=== PATIENT | male | born 1950 | race Caucasian/White ===

== ENCOUNTER 2017-06-26 08:16 | Day surgery (SDC) | payer MEDICARE ==
[~2017-06-26] VITALS: Ht 177.8 cm; Wt 64.0 kg
[~2017-06-26 08:16] MED LIST: ADV50250 IH; CARV-49 PO; CLOP75TA35 PO; FENO135C3 PO; FURO-150 PO; GABA100C PO; GLIP-126 PO; LEVO500T89 PO; LISI10TA4 PO; MULT-570 PO; PANT40TA4 PO; PRED20TA PO; ROSU40TA PO; TIOT18CA7 IH
[2017-06-26] MEDS ORDERED: sodium bicarbonate (8.4%) inj. 150 MEQ in dextrose 5%-water 850 ML IV ONE (09:30)
[2017-06-26 09:45] VITALS: BP 104/53
[2017-06-26] MEDS ORDERED: iohexol 350 MG/ML 50ML vial IV ONE (11:38)
[2017-06-26] MEDS ORDERED: iohexol 350MG/ML 100ml bottle IV ONE (11:38)
[2017-06-26] MEDS ORDERED: sodium bicarbonate (8.4%) inj. 150 MEQ in dextrose 5%-water 1,000 ML IV SCH (13:40)
[2017-06-26 16:07] VITALS: BP 107/64
== END 2017-06-26 16:25 | disposition home or self-care (01) ==
LOC: SSTAY O 08:16 → 64 CT 08:16 → EDSTATUS 09:00 → SSTAY O 16:25
PROVIDERS: ATTEND Surgery
DX: I71.4 Abdominal aortic aneurysm, without rupture (principal); I74.5 Embolism and thrombosis of iliac artery; I70.203 Unspecified atherosclerosis of native arteries of extremities, bilateral legs; I10 Essential (primary) hypertension; F17.210 Nicotine dependence, cigarettes, uncomplicated; E11.9 Type 2 diabetes mellitus without complications; Z87.11 Personal history of peptic ulcer disease; Z72.89 Other problems related to lifestyle; Z85.528 Personal history of other malignant neoplasm of kidney; Z85.841 Personal history of malignant neoplasm of brain; Z85.118 Personal history of other malignant neoplasm of bronchus and lung; Z79.2 Long term (current) use of antibiotics; Z88.6 Allergy status to analgesic agent; Z98.890 Other specified postprocedural states; Z79.899 Other long term (current) drug therapy
CPT/HCPCS: 75635; 82948; J7030; Q9967

== ENCOUNTER 2017-07-06 09:50 | Inpatient (IN) | payer MEDICARE ==
[~2017-07-06] VITALS: Ht 177.8 cm; Wt 66.0 kg
[~2017-07-06 09:50] MED LIST changes: -CARV-49 PO; -CLOP75TA35 PO; -FURO-150 PO; -GABA100C PO; -LEVO500T89 PO; -PANT40TA4 PO; -PRED20TA PO
[2017-07-06] MEDS ORDERED: HYDR-3972 PO (10:46)
[2017-07-06] MEDS ORDERED: TEMA15CA PO (10:46)
[2017-07-06] MEDS ORDERED: METO-384 PO (10:46)
[2017-07-06] MEDS ORDERED: ASCO10007 PO (10:49)
[2017-07-06] MEDS ORDERED: CHOL10002 PO (10:49)
[2017-07-06] MEDS ORDERED: VITA150T PO (10:49)
[2017-07-06] MEDS ORDERED: OMEG1CAP20 PO (10:49)
[2017-07-06 11:15] LABS: BASOPHILS % (AUTO) 0.4 % (0-1); EOSINOPHILS # (AUTO) 1.3 X10'3 (0-0.9); EOSINOPHILS % (AUTO) 14.5 % (0-6); LYMPHOCYTES # (AUTO) 1.8 X10'3 (1.1-4.8); LYMPHOCYTES % (AUTO) 20.6 % (21-51); MEAN CORPUSCULAR HEMOGLOBIN 30.3 PG (27.0-31.0); MEAN CORPUSCULAR HGB CONC 33.9 % (33.0-36.5); MEAN CORPUSCULAR VOLUME 89.2 FL (78-98); MEAN PLATELET VOLUME 6.9 FL (7.4-10.4); MONOCYTES # (AUTO) 0.9 X10'3 (0-0.9); MONOCYTES % (AUTO) 10.4 % (2-12); NEUTROPHILS # (AUTO) 4.7 X10'3 (1.8-7.7); NEUTROPHILS % (AUTO) 54.1 % (42-75); PRE OP HEMATOCRIT 35.9 % (42.0-52.0); PRE OP HEMOGLOBIN 12.2 g/dL (14.0-17.9); PRE OP PLATELET COUNT 321 X10'3 (140-440); RED BLOOD COUNT 4.02 X10'6 (4.70-6.10); RED CELL DISTRIBUTION WIDTH 18.1 % (11.5-14.5)
[2017-07-06 11:23] LABS: PRE OP PROTIME 10.6 SECONDS (9.0-12.0)
[2017-07-06 11:26] LABS: ALBUMIN 3.6 G/DL (3.4-5.0); ALBUMIN/GLOBULIN RATIO 1.1 (1.1-1.5); ALKALINE PHOSPHATASE 29 IU/L (46-116); BLOOD UREA NITROGEN 33 MG/DL (7-18); BUN/CREATININE RATIO 16.4 (5.4-32.0); CALCIUM 9.2 MG/DL (8.5-10.1); CHLORIDE 104 MMOL/L (99-107); CREATININE 2.01 MG/DL (0.60-1.10); PRE OP ALT 19 U/L (30-65); PRE OP ANION GAP 8 (8-16); PRE OP AST 17 U/L (10-37); PRE OP BILIRUB, TOTAL 0.3 MG/DL (0.0-1.0); PRE OP GLUCOSE 165 MG/DL (70-104); PRE OP POTASSIUM 5.1 MMOL/L (3.4-5.1); PRE OP SODIUM 139 MMOL/L (135-145); TOTAL CARBON DIOXIDE 26.7 MMOL/L (24-32); TOTAL PROTEIN 6.8 G/DL (6.4-8.2); eGFR 33 ML/MIN
[2017-07-06 11:31] LABS: HEMOGLOBIN A1C 6.3 % (4.5-6.2)
[2017-07-07] MEDS ORDERED: IBUP-24 PO (11:51)
[2017-07-07] MEDS ORDERED: normal saline 1000ml 1,000 ML IV SCH (12:15)
[2017-07-08] VITALS (28 sets, daily range): BP systolic 96–182; BP diastolic 43–78
[2017-07-08] MEDS ORDERED: famotidine 20mg tablet PO ONE (05:30)
[2017-07-08] MEDS ORDERED: DOCUMENT DATE & TIME OF BETA-BLOCKER PO ONE (05:30)
[2017-07-08] MEDS ORDERED: ceFAZolin inj. 2,000 MG in normal saline 100ml IV soln 100 ML IV ONE (05:30)
[2017-07-08] MEDS ORDERED: ceFAZolin inj. 3,000 MG in dextrose 5%-water 100 ML IV ONE (05:30)
[2017-07-08] MEDS ORDERED: LIDOcaine 1% (10mg/ml) 2ml vial ONE (05:58)
[2017-07-08] MEDS: ringers solution, lacted 1,000 ML IV SCH ×2 (06:23→14:42)
[2017-07-08] MEDS ORDERED: vancomycin/NS 1 GM ADD-VANTAGE 250 ML X 1 DOSE IV ONE (06:30)
[2017-07-08] MEDS ORDERED: ceFAZolin 1000mg inj ONE (06:35)
[2017-07-08] MEDS ORDERED: heparin 10,000 units/1 ML INJ ONE ×2 (06:35→06:59)
[2017-07-08] MEDS ORDERED: sevoflurane 250ml liquid IH ONE (07:08)
[2017-07-08] MEDS ORDERED: midazolam 2 mg/2 ml injection ONE (07:12)
[2017-07-08] MEDS ORDERED: fentaNYL /PF 50mcg/ml 5ml ampule ONE (07:13)
[2017-07-08] MEDS ORDERED: heparin 1,000unit/ml 10ml vial 10 ML ONE ×2 (08:02→09:30)
[2017-07-08] MEDS ORDERED: metoprolol tartrate 1mg/ml inj IV ONE ×2 (08:02→09:30)
[2017-07-08] MEDS ORDERED: LIDOcaine 2% (20mg/ml) 5ml vial ONE (08:02)
[2017-07-08] MEDS ORDERED: esmolol inj. 0 ML IV ONE (08:02)
[2017-07-08] MEDS ORDERED: ePHEDrine 50MG/ML INJ. ONE (08:03)
[2017-07-08] MEDS ORDERED: rocuronium 10mg/ml inj IV ONE (08:03)
[2017-07-08] MEDS ORDERED: propofol inj 20 ML IV ONE (08:03)
[2017-07-08] MEDS ORDERED: ondansetron/PF 4mg/2ml inj ONE (08:06)
[2017-07-08] MEDS ORDERED: ringers solution, lacted 1,000 ML IV ONE (08:11)
[2017-07-08] MEDS ORDERED: morphine 4 MG/ML inj SYRINge IV PRN ×2 (08:15)
[2017-07-08] MEDS ORDERED: meperidine/PF 50mg/ml syringe IV PRN ×2 (08:15)
[2017-07-08] MEDS ORDERED: hydrALAZINE 20mg/ml inj. IV PRN (08:15)
[2017-07-08] MEDS ORDERED: labetalol 20mg/4ml (5mg/ml) syringe IV PRN (08:15)
[2017-07-08] MEDS ORDERED: ondansetron/PF 4mg/2ml inj IV PRN ×2 (08:15→09:05)
[2017-07-08] MEDS ORDERED: meperidine/PF 50mg/ml syringe IV ONE (08:15)
[2017-07-08] MEDS ORDERED: neostigmine methylsulfate 1 MG/ML 10ml vial ONE (08:56)
[2017-07-08] MEDS ORDERED: glycopyrrolate 0.2mg/ml inj ONE (08:56)
[2017-07-08] MEDS ORDERED: dextrose ORAL solution 15 GM/59 ML bottle PO PRN ×2 (09:05)
[2017-07-08] MEDS ORDERED: naloxone 0.4 mg/ml inj IV PRN (09:05)
[2017-07-08] MEDS ORDERED: MESSAGE TO PHARMACY PO ONE (09:05)
[2017-07-08] MEDS ORDERED: HYDROcodone/acetaminophen 10/325mg tab PO PRN (09:05)
[2017-07-08] MEDS ORDERED: glucagon, human recombinant 1mg kit SUBCUT PRN (09:05)
[2017-07-08] MEDS ORDERED: dextrose 50%-water 50ml dispensing syringe IV PRN ×2 (09:05)
[2017-07-08] MEDS ORDERED: CADD PCA waste documentation MC PRN (09:05)
[2017-07-08] MEDS ORDERED: insulin Lispro (HumaLOG) vial - multi-dose SQ SCH (09:05)
[2017-07-08] MEDS ORDERED: esmolol inj. 10 ML IV ONE (09:30)
[2017-07-08] MEDS: HYDROmorphone/NS 1 mg/ml CADD 50 ML IV SCH ×7 (10:06→23:00)
[2017-07-08] MEDS ORDERED: ibuprofen 200mg tablet PO PRN (17:30)
[2017-07-08] MEDS ORDERED: temazepam 15mg capsule PO PRN (17:30)
[2017-07-08] MEDS: neomy sulf/bacitrac zn/polymixin b oint 14.2 gm tube TP SCH (20:46)
[2017-07-08] MEDS: ipratropium 0.5 MG/2.5ML nebule IH SCH (20:50)
[2017-07-08] MEDS: insulin glargine (Lantus) pen - multi-dose SQ SCH (21:00)
[2017-07-09] VITALS (11 sets, daily range): BP systolic 89–117; BP diastolic 47–74
[2017-07-09] MEDS: HYDROmorphone/NS 1 mg/ml CADD 50 ML IV SCH ×12 (01:00→23:00)
[2017-07-09] MEDS: ipratropium 0.5 MG/2.5ML nebule IH SCH ×4 (02:26→20:32)
[2017-07-09 05:21] LABS: BASOPHILS % (AUTO) 0 % (0-1); EOSINOPHILS # (AUTO) 0.5 X10'3 (0-0.9); EOSINOPHILS % (AUTO) 4.6 % (0-6); HEMOGLOBIN 10.8 g/dl (14.0-17.9); LYMPHOCYTES % (AUTO) 9.5 % (21-51); MEAN CORPUSCULAR HEMOGLOBIN 30.7 PG (27.0-31.0); MEAN CORPUSCULAR HGB CONC 33.7 % (33.0-36.5); MEAN CORPUSCULAR VOLUME 90.9 FL (78-98); MEAN PLATELET VOLUME 6.8 FL (7.4-10.4); MONOCYTES # (AUTO) 1.3 X10'3 (0-0.9); MONOCYTES % (AUTO) 12.1 % (2-12); NEUTROPHILS % (AUTO) 73.8 % (42-75); PLATELET COUNT 231 X10'3 (140-440); RED BLOOD COUNT 3.51 X10'6 (4.70-6.10); RED CELL DISTRIBUTION WIDTH 17.5 % (11.5-14.5); WHITE BLOOD COUNT 10.9 X10'3 (4.5-11.0)
[2017-07-09 05:30] LABS: ANION GAP 10 (8-16); BLOOD UREA NITROGEN 29 MG/DL (7-18); CALCIUM 8.2 MG/DL (8.5-10.1); CHLORIDE 107 MMOL/L (99-107); CREATININE 1.61 MG/DL (0.60-1.10); GLUCOSE 111 MG/DL (70-104); POTASSIUM 5.2 MMOL/L (3.5-5.1); SODIUM 141 MMOL/L (135-145); TOTAL CARBON DIOXIDE 24.5 MMOL/L (24-32); eGFR 43 ML/MIN
[2017-07-09] MEDS: vancomycin/NS 1 GM ADD-VANTAGE 250 ML IV SCH ×2 (05:38→07:48)
[2017-07-09] MEDS: vitamin D (cholecalciferol) 1,000 unit tablet PO SCH (07:54)
[2017-07-09] MEDS: OMEGA-3/DHA/EPA/FISH OIL 1 EACH CAPSULE.DR PO SCH (07:58)
[2017-07-09] MEDS: fenofibrate 145mg tablet PO SCH (07:58)
[2017-07-09] MEDS: multivitamins, therapeutics tablet PO SCH (07:58)
[2017-07-09] MEDS: neomy sulf/bacitrac zn/polymixin b oint 14.2 gm tube TP SCH (07:59)
[2017-07-09] MEDS: metoprolol tartrate 50mg tablet PO SCH (08:00)
[2017-07-09] MEDS ORDERED: glipizide 5mg tablet PO SCH (08:00)
[2017-07-09] MEDS: ascorbic acid 500mg tablet PO SCH ×2 (08:00→10:00)
[2017-07-09] MEDS: enoxaparin 40mg/0.4ml syringe SQ SCH (08:15)
[2017-07-09] MEDS: lactobacillus rhamnosus 10,000 MMU CELLS/CAPSULE PO SCH (20:32)
[2017-07-09] MEDS: insulin glargine (Lantus) pen - multi-dose SQ SCH (21:00)
[2017-07-10] VITALS: BP 128/60
[2017-07-10] MEDS: HYDROmorphone/NS 1 mg/ml CADD 50 ML IV SCH ×8 (01:00→15:00)
[2017-07-10 01:03] LABS: BASOPHILS # (AUTO) 0.1 X10'3 (0-0.2); BASOPHILS % (AUTO) 1.3 % (0-1); EOSINOPHILS # (AUTO) 0.2 X10'3 (0-0.9); EOSINOPHILS % (AUTO) 2.1 % (0-6); HEMATOCRIT 33.7 % (42.0-52.0); HEMOGLOBIN 11.2 g/dl (14.0-17.9); LYMPHOCYTES # (AUTO) 0.9 X10'3 (1.1-4.8); LYMPHOCYTES % (AUTO) 8.1 % (21-51); MEAN CORPUSCULAR HGB CONC 33.4 % (33.0-36.5); MEAN CORPUSCULAR VOLUME 89.9 FL (78-98); MEAN PLATELET VOLUME 7.6 FL (7.4-10.4); MONOCYTES # (AUTO) 1.2 X10'3 (0-0.9); MONOCYTES % (AUTO) 10.8 % (2-12); NEUTROPHILS % (AUTO) 77.7 % (42-75); PLATELET COUNT 258 X10'3 (140-440); RED BLOOD COUNT 3.75 X10'6 (4.70-6.10); RED CELL DISTRIBUTION WIDTH 16.6 % (11.5-14.5); WHITE BLOOD COUNT 11.4 X10'3 (4.5-11.0)
[2017-07-10] MEDS: ipratropium 0.5 MG/2.5ML nebule IH SCH ×3 (03:30→14:20)
[2017-07-10 06:06] LABS: BASOPHILS % (AUTO) 0.2 % (0-1); EOSINOPHILS # (AUTO) 0.4 X10'3 (0-0.9); EOSINOPHILS % (AUTO) 4.1 % (0-6); HEMATOCRIT 30.1 % (42.0-52.0); HEMOGLOBIN 10.3 g/dl (14.0-17.9); LYMPHOCYTES # (AUTO) 1.2 X10'3 (1.1-4.8); LYMPHOCYTES % (AUTO) 11.9 % (21-51); MEAN CORPUSCULAR HGB CONC 34.3 % (33.0-36.5); MEAN CORPUSCULAR VOLUME 90.4 FL (78-98); MEAN PLATELET VOLUME 6.8 FL (7.4-10.4); MONOCYTES # (AUTO) 1.3 X10'3 (0-0.9); MONOCYTES % (AUTO) 13.2 % (2-12); NEUTROPHILS # (AUTO) 7.1 X10'3 (1.8-7.7); NEUTROPHILS % (AUTO) 70.6 % (42-75); PLATELET COUNT 224 X10'3 (140-440); RED BLOOD COUNT 3.33 X10'6 (4.70-6.10)
[2017-07-10 06:39] LABS: ALANINE AMINOTRANSFERASE 20 U/L (12-78); ALBUMIN 3.2 G/DL (3.4-5.0); ALKALINE PHOSPHATASE 30 IU/L (46-116); ANION GAP 13 (8-16); ASPARTATE AMINO TRANSFERASE 28 U/L (10-37); BILIRUBIN,TOTAL 0.6 MG/DL (0.1-1.0); BLOOD UREA NITROGEN 29 MG/DL (7-18); CALCIUM 8.3 MG/DL (8.5-10.1); CHLORIDE 102 MMOL/L (99-107); CREATININE 1.53 MG/DL (0.60-1.10); GLUCOSE 106 MG/DL (70-104); POTASSIUM 4.6 MMOL/L (3.5-5.1); SODIUM 136 MMOL/L (135-145); TOTAL CARBON DIOXIDE 21.4 MMOL/L (24-32); TOTAL PROTEIN 6.3 G/DL (6.4-8.2); eGFR 45 ML/MIN
[2017-07-10 07:00] VITALS: BP 116/57
[2017-07-10] MEDS: OMEGA-3/DHA/EPA/FISH OIL 1 EACH CAPSULE.DR PO SCH (07:55)
[2017-07-10] MEDS: lactobacillus rhamnosus 10,000 MMU CELLS/CAPSULE PO SCH (07:55)
[2017-07-10] MEDS: metoprolol tartrate 50mg tablet PO SCH (07:56)
[2017-07-10] MEDS: multivitamins, therapeutics tablet PO SCH (07:56)
[2017-07-10] MEDS: vitamin D (cholecalciferol) 1,000 unit tablet PO SCH (07:56)
[2017-07-10] MEDS: enoxaparin 40mg/0.4ml syringe SQ SCH (07:57)
[2017-07-10] MEDS: fenofibrate 145mg tablet PO SCH (07:57)
[2017-07-10] MEDS: neomy sulf/bacitrac zn/polymixin b oint 14.2 gm tube TP SCH (08:00)
[2017-07-10] MEDS: ascorbic acid 500mg tablet PO SCH (10:10)
[2017-07-10 11:00] VITALS: BP 116/61
[2017-07-10] MEDS ORDERED: HYDROcodone/acetaminophen 10/325mg tab PO PRN (15:40)
[2017-07-10] MEDS ORDERED: OXYC-150 PO (16:43)
== END 2017-07-10 17:45 | disposition home or self-care (01) | DRG 253 ==
LOC: EDSTATUS 09:50 → PAS IN 07-08 05:32 → EDSTATUS 07-08 07:30 → CICU 2S 07-08 10:25 → MED 3N 07-09 13:21
PROVIDERS: ADMIT Surgery; ATTEND Surgery
PROC: 02HV33Z Insertion of Infusion Device into Superior Vena Cava, Percutaneous Approach (ICD-10-PCS; 2017-07-08)
PROC: 041L0JH Bypass Left Femoral Artery to Right Femoral Artery with Synthetic Substitute, Open Approach (ICD-10-PCS; principal; 2017-07-08 07:08)
DX: I70.712 Atherosclerosis of other type of bypass graft(s) of the extremities with intermittent claudication, left leg (principal); C41.9 Malignant neoplasm of bone and articular cartilage, unspecified; C64.9 Malignant neoplasm of unspecified kidney, except renal pelvis; J44.9 Chronic obstructive pulmonary disease, unspecified; E11.9 Type 2 diabetes mellitus without complications; E78.5 Hyperlipidemia, unspecified; I10 Essential (primary) hypertension; R33.9 Retention of urine, unspecified; F17.210 Nicotine dependence, cigarettes, uncomplicated; Z96.641 Presence of right artificial hip joint; Z95.5 Presence of coronary angioplasty implant and graft; Z79.899 Other long term (current) drug therapy; Z87.11 Personal history of peptic ulcer disease; Z82.49 Family history of ischemic heart disease and other diseases of the circulatory system
CPT/HCPCS: 36415; 71045; 80048; 80053; 82948; 83036; 85025; 85610; 85730; 86644; 86870; 86885; 86900; 86901; 86902; 86922; 86945; 87070; 94640; 94668; 94760; 97116; 97161; 97530; A4315; A4353; A4649; A6196; A6212; A6213; A6258; A6449; A7000; C1751; C1757; C1758; C1768; J0690; J1170; J1644; J1650; J1815; J2001; J2175; J2250; J2270; J2405; J2704; J2710; J3010; J3370; J3490; J7030; J7060; J7120

== ENCOUNTER 2017-07-10 22:30 | Emergency (ER) | payer MEDICARE ==
[~2017-07-10] VITALS: Ht 170.2 cm; Wt 66.0 kg
[~2017-07-10 22:30] MED LIST changes: +ASCO10007 PO; +CHOL10002 PO; +HYDR-3972 PO; +IBUP-24 PO; +METO-384 PO; +OMEG1CAP20 PO; +OXYC-150 PO; +TEMA15CA PO; +VITA150T PO
[2017-07-10 22:53] VITALS: BP 120/59
== END 2017-07-11 00:14 | disposition home or self-care (01) ==
LOC: ER 22:31
DX: T81.89XA Other complications of procedures, not elsewhere classified, initial encounter (principal); I25.10 Atherosclerotic heart disease of native coronary artery without angina pectoris; I10 Essential (primary) hypertension; E11.9 Type 2 diabetes mellitus without complications; J44.9 Chronic obstructive pulmonary disease, unspecified; Z79.899 Other long term (current) drug therapy
CPT/HCPCS: 99283

== ENCOUNTER 2018-04-18 19:23 | Emergency (ER) | payer MEDICARE ==
[~2018-04-18] VITALS: Ht 180.3 cm; Wt 67.5 kg
[2018-04-18 20:15] LABS: BASOPHILS % (AUTO) 0.6 % (0-1); EOSINOPHILS # (AUTO) 0.7 X10'3 (0-0.9); EOSINOPHILS % (AUTO) 8.6 % (0-6); HEMATOCRIT 41.6 % (42.0-52.0); HEMOGLOBIN 13.7 g/dl (14.0-17.9); LYMPHOCYTES # (AUTO) 2.2 X10'3 (1.1-4.8); LYMPHOCYTES % (AUTO) 27.4 % (21-51); MEAN CORPUSCULAR HEMOGLOBIN 31.7 PG (27.0-31.0); MEAN CORPUSCULAR HGB CONC 32.9 % (33.0-36.5); MEAN CORPUSCULAR VOLUME 96.3 FL (78-98); MEAN PLATELET VOLUME 7.5 FL (7.4-10.4); NEUTROPHILS % (AUTO) 51.4 % (42-75); PLATELET COUNT 308 X10'3 (140-440); RED BLOOD COUNT 4.32 X10'6 (4.70-6.10); RED CELL DISTRIBUTION WIDTH 13.4 % (11.5-14.5); WHITE BLOOD COUNT 7.9 X10'3 (4.5-11.0)
[2018-04-18 20:28] LABS: INR 1.1 INR; PARTIAL THROMBOPLASTIN TIME 26 SECONDS (22-32); PROTHROMBIN TIME 10.7 SECONDS (9.0-12.0)
[2018-04-18 20:30] LABS: ALANINE AMINOTRANSFERASE 26 U/L (12-78); ALBUMIN 3.9 G/DL (3.4-5.0); ALBUMIN/GLOBULIN RATIO 1.1 (1.1-1.5); ALKALINE PHOSPHATASE 45 IU/L (46-116); ANION GAP 9 (8-16); ASPARTATE AMINO TRANSFERASE 22 U/L (10-37); BILIRUBIN,TOTAL 0.3 MG/DL (0.1-1.0); BLOOD UREA NITROGEN 24 MG/DL (7-18); BUN/CREATININE RATIO 16.7 (5.4-32.0); CALCIUM 9.7 MG/DL (8.5-10.1); CHLORIDE 102 MMOL/L (99-107); CREATININE 1.44 MG/DL (0.60-1.10); GLUCOSE 149 MG/DL (70-104); POTASSIUM 4.6 MMOL/L (3.5-5.1); SODIUM 139 MMOL/L (135-145); TOTAL PROTEIN 7.4 G/DL (6.4-8.2); eGFR 49 ML/MIN
[2018-04-18] MEDS ORDERED: ipratropium/albuterol 3ml nebule NEB ONE (21:35)
[2018-04-18] MEDS ORDERED: methylPREDNISolone sod succ 125mg/2ml vial IV ONE (21:35)
[2018-04-18 22:06] VITALS: BP 129/71
[2018-04-18] MEDS ORDERED: PRED20TA PO (22:54)
[2018-04-18] MEDS ORDERED: AZIT250T2 PO (22:54)
--- NOTE | 2018-04-18 23:14 | NUR ---
PT AMBULATED ONE CIRCUT OF ER WITH AN 02 OF 91% ON ROOM AIR. NO WEAKNESS OR DIZZINESS REPORTED
== END 2018-04-18 23:57 | disposition home or self-care (01) ==
LOC: ER 19:23
DX: J44.1 Chronic obstructive pulmonary disease with (acute) exacerbation (principal); I25.10 Atherosclerotic heart disease of native coronary artery without angina pectoris; I10 Essential (primary) hypertension; E11.9 Type 2 diabetes mellitus without complications
CPT/HCPCS: 36415; 71045; 80053; 83880; 84484; 85025; 85610; 85730; 87502; 87503; 93005; 94640; 94760; 96374; 99284; J2930

== ENCOUNTER 2018-07-26 20:48 | Inpatient (IN) | payer MEDICARE ==
[~2018-07-26] VITALS: Ht 177.8 cm; Wt 68.2 kg
[2018-07-26] MEDS ORDERED: normal saline 1000ML IV soln IVB ONE (20:55)
[2018-07-26] MEDS ORDERED: albuterol 2.5 mg/0.5ml nebule NEB ONE (20:55)
[2018-07-26] MEDS ORDERED: methylPREDNISolone sod succ 125mg/2ml vial IV ONE (20:55)
[2018-07-26] MEDS ORDERED: albuterol 2.5 MG/3 ML nebule NEB ONE ×2 (21:05→23:05)
[2018-07-26] MEDS ORDERED: ALBU18HF2 IH (21:15)
[2018-07-26] MEDS ORDERED: FENO145T25 PO (21:15)
[2018-07-26] MEDS ORDERED: ASPI-1265 PO (21:15)
[2018-07-26] MEDS ORDERED: BUPR-83 PO (21:15)
[2018-07-26] MEDS ORDERED: LISI-604 PO (21:15)
[2018-07-26 21:25] LABS: BASOPHILS # (AUTO) 0.1 X10'3 (0-0.2); BASOPHILS % (AUTO) 0.7 % (0-1); EOSINOPHILS # (AUTO) 0.9 X10'3 (0-0.9); EOSINOPHILS % (AUTO) 7.3 % (0-6); HEMATOCRIT 37.5 % (42.0-52.0); HEMOGLOBIN 12.4 g/dl (14.0-17.9); LYMPHOCYTES # (AUTO) 1.9 X10'3 (1.1-4.8); LYMPHOCYTES % (AUTO) 16.6 % (21-51); MEAN PLATELET VOLUME 7.3 FL (7.4-10.4); MONOCYTES # (AUTO) 1.6 X10'3 (0-0.9); MONOCYTES % (AUTO) 13.8 % (2-12); NEUTROPHILS # (AUTO) 7.1 X10'3 (1.8-7.7); NEUTROPHILS % (AUTO) 61.6 % (42-75); PLATELET COUNT 301 X10'3 (140-440); RED BLOOD COUNT 3.99 X10'6 (4.70-6.10); RED CELL DISTRIBUTION WIDTH 15.4 % (11.5-14.5); WHITE BLOOD COUNT 11.6 X10'3 (4.5-11.0)
[2018-07-26 21:30] LABS: ALANINE AMINOTRANSFERASE 23 U/L (12-78); ALBUMIN 3.3 G/DL (3.4-5.0); ALBUMIN/GLOBULIN RATIO 0.9 (1.1-1.5); ALKALINE PHOSPHATASE 42 IU/L (46-116); ANION GAP 3 (8-16); ASPARTATE AMINO TRANSFERASE 19 U/L (10-37); BILIRUBIN,TOTAL 0.2 MG/DL (0.1-1.0); BLOOD UREA NITROGEN 33 MG/DL (7-18); BUN/CREATININE RATIO 26.2 (5.4-32.0); CALCIUM 9.7 MG/DL (8.5-10.1); CHLORIDE 101 MMOL/L (99-107); CREATININE 1.26 MG/DL (0.60-1.10); GLUCOSE 135 MG/DL (70-104); POTASSIUM 4.8 MMOL/L (3.5-5.1); SODIUM 138 MMOL/L (135-145); TOTAL CARBON DIOXIDE 34.5 MMOL/L (24-32); TOTAL PROTEIN 7.1 G/DL (6.4-8.2); eGFR 57 ML/MIN
[2018-07-26 21:35] LABS: INR 1.1 INR; PARTIAL THROMBOPLASTIN TIME 25 SECONDS (22-32)
[2018-07-26] MEDS ORDERED: ondansetron/PF 4mg/2ml inj IV ONE (21:40)
[2018-07-26 22:36] LABS: MAGNESIUM 1.8 MG/DL (1.5-2.4); PHOSPHORUS 3.4 MG/DL (2.3-4.5)
[2018-07-26 23:41] LABS: ABG BASE EXCESS 3.6 mmol/L (-2.0-3.0); ABG HCO3 34.2 mmol/L (22.0-26.0); ABG PCO2 (T) 86.8 mmHg (35.0-48.0); ABG PH (T) 7.213 (7.350-7.450); ABG PO2 (T) 68.3 mmHg (83-108); ALLEN'S TEST Positive; FCOHb 6.3 % (0.5-1.5); FLOW 2 L/min; FMetHb 0.2 % (0.3-1.12); RESPIRATORY RATE (OBSERVED) 20 b/min; TOTAL HEMOGLOBIN 13.1 G/dl (14.0-18.0)
--- NOTE | 2018-07-27 00:08 | NUR ---
2200 PATIENT VOMITED BROWN 200 ML, AWARE
--- NOTE | 2018-07-27 00:08 | NUR ---
BIPAP PLACED, VERBALIZED UNDERSTANDING
--- NOTE | 2018-07-27 00:30 | NUR ---
ROCKY [phone] CELL
[2018-07-27 02:41] LABS: ABG BASE EXCESS -0.6 mmol/L (-2.0-3.0); ABG HCO3 28.5 mmol/L (22.0-26.0); ABG OXYGEN SATURATION 95.6 % (95-98); ABG PH (T) 7.238 (7.350-7.450); ABG PO2 (T) 82.2 mmHg (83-108); ALLEN'S TEST Positive; FCOHb 4.9 % (0.5-1.5); FMetHb 0.2 % (0.3-1.12); FO2Hb 90.7 % (94-100); PATIENT TEMPERATURE 36.5; RESPIRATORY RATE 14 b/min; RESPIRATORY RATE (OBSERVED) 25 b/min; TOTAL HEMOGLOBIN 13.1 G/dl (14.0-18.0)
--- NOTE | 2018-07-27 04:02 | NUR ---
HOSPITALIST AT BEDSIDE.
--- NOTE | 2018-07-27 04:30 | NUR ---
NURSING LABOR RELATIONS MANAGER AT BEDSIDE.
[2018-07-27] MEDS ORDERED: ondansetron/PF 4mg/2ml inj IV PRN (04:50)
[2018-07-27] MEDS ORDERED: mag hydrox/Alum hydrox/simeth 30ml oral suspension PO PRN (04:50)
[2018-07-27] MEDS ORDERED: magnesium hydroxide 30ml (MOM) UD suspension PO PRN (04:50)
[2018-07-27] MEDS ORDERED: acetaminophen 325mg tablet PO PRN (04:50)
--- NOTE | 2018-07-27 04:53 | NUR ---
IN PATIENT BED ASSIGNMENT DELAYED TILL CHANGE OF SHIFT. Pt. OFFERED HOSPITAL BED BUT DECLINED. rEPORTED THAT HE IS FINE OF NOW.
[2018-07-27] MEDS ORDERED: MESSAGE TO PHARMACY PO ONE (04:55)
[2018-07-27] MEDS ORDERED: glucagon, human recombinant 1mg kit SUBCUT PRN (04:55)
[2018-07-27] MEDS ORDERED: dextrose ORAL solution 15 GM/59 ML bottle PO PRN ×2 (04:55)
[2018-07-27] MEDS ORDERED: insulin Lispro (HumaLOG) vial - multi-dose SQ SCH (04:55)
[2018-07-27] MEDS ORDERED: dextrose 50%-water 50ml dispensing syringe IV PRN ×2 (04:55)
[2018-07-27 05:11] LABS: HEMOGLOBIN A1C 7.2 % (4.5-6.2)
--- NOTE | 2018-07-27 05:25 | NUR ---
Patient on bipap and sleeping comfortably. Currently waiting for inpatient room assignment.
--- NOTE | 2018-07-27 06:30 | NUR ---
Attempted to call report, No nurse assigned.
[2018-07-27 07:45] VITALS: BP 135/67
[2018-07-27] MEDS ORDERED: non-formulary drug (Tiotropium Bromide* (Spiriva*) 18 MCG) IH SCH (08:00)
[2018-07-27] MEDS: methylPREDNISolone sod succ/PF 40mg inj. IV SCH ×2 (09:15→15:19)
[2018-07-27] MEDS: buPROPion SR 150mg tablet PO SCH (09:15)
[2018-07-27] MEDS: aspirin 81mg tab.chew PO SCH (09:15)
[2018-07-27] MEDS: metoprolol succinate 25mg (24-HOUR) SR. Tablet PO SCH (09:15)
[2018-07-27] MEDS: atorvastatin 10mg tablet PO SCH (09:15)
[2018-07-27] MEDS: lisinopril 5mg tablet PO SCH (09:15)
[2018-07-27] MEDS: enoxaparin 40mg/0.4ml syringe SUBCUT SCH (09:16)
[2018-07-27] MEDS: budesonide 0.5mg/2ml UD nebule IH SCH ×2 (09:43→19:58)
[2018-07-27] MEDS: ipratropium/albuterol 3ml nebule NEB SCH ×4 (09:43→23:23)
[2018-07-27] MEDS ORDERED: pneumococcal 23-VAL P-sac vacc 25 mcg/0.5ml vial IMVAC ONE (10:00)
[2018-07-27 11:00] VITALS: BP 134/44
--- NOTE | 2018-07-27 11:16 | NUR ---
DM Consult: A1C 7.2. Pt hx T2DM, COPD, renal cell carcinoma w/ mets to R hip requiring surgery and brain requiring radiation per MD note. Pt has received 2 chemo regimens for palliative care keeping him alive per MD note. Given hx pt is not apporpriate for DM ed at this time. Will monitor for changes in code status. MIRNA d/w RN for multivitamin/mineral for pt needs per MD approval. Addendum: 07/27/18 at [address] Amended: Links added.
[2018-07-27] MEDS: lactose-reduced food (Ensure High Protein) 237ml bottle PO SCH ×2 (13:00→18:00)
[2018-07-27 15:00] VITALS: BP 117/54
--- NOTE | 2018-07-27 17:56 | NUR ---
refusing tele " You have enough information I dont want this" he said. Tele box returned to tech
--- NOTE | 2018-07-27 18:15 | NUR ---
Paged about refusal of insulin and refusal of tele
[2018-07-27 19:00] VITALS: BP 145/55
[2018-07-27] MEDS: insulin glargine (Lantus) pen - multi-dose SQ SCH (21:00)
--- NOTE | 2018-07-27 21:46 | NUR ---
PATIENT STILL REFUSING INULIN.
[2018-07-27 23:00] VITALS: BP 125/58
[2018-07-28] VITALS (7 sets, daily range): BP systolic 101–156; BP diastolic 55–73
[2018-07-28] MEDS: methylPREDNISolone sod succ/PF 40mg inj. IV SCH ×3 (00:06→17:01)
[2018-07-28] MEDS: temazepam 15mg capsule PO PRN ×2 (01:11→22:24)
[2018-07-28] MEDS: ipratropium/albuterol 3ml nebule NEB SCH ×6 (02:59→23:24)
[2018-07-28 05:26] LABS: BASOPHILS % (AUTO) 0.1 % (0-1); EOSINOPHILS % (AUTO) 0 % (0-6); HEMATOCRIT 33.1 % (42.0-52.0); LYMPHOCYTES # (AUTO) 0.7 X10'3 (1.1-4.8); LYMPHOCYTES % (AUTO) 9.3 % (21-51); MEAN CORPUSCULAR HEMOGLOBIN 31.6 PG (27.0-31.0); MEAN CORPUSCULAR HGB CONC 33.2 g/dL (33.0-36.5); MEAN CORPUSCULAR VOLUME 95.2 FL (78-98); MEAN PLATELET VOLUME 7.6 FL (7.4-10.4); MONOCYTES # (AUTO) 0.3 X10'3 (0-0.9); MONOCYTES % (AUTO) 3.2 % (2-12); NEUTROPHILS # (AUTO) 6.9 X10'3 (1.8-7.7); NEUTROPHILS % (AUTO) 87.4 % (42-75); PLATELET COUNT 245 X10'3 (140-440); RED BLOOD COUNT 3.48 X10'6 (4.70-6.10); WHITE BLOOD COUNT 7.9 X10'3 (4.5-11.0)
[2018-07-28 05:50] LABS: ALANINE AMINOTRANSFERASE 19 U/L (12-78); ALBUMIN/GLOBULIN RATIO 0.9 (1.1-1.5); ALKALINE PHOSPHATASE 35 IU/L (46-116); ANION GAP 4 (8-16); ASPARTATE AMINO TRANSFERASE 15 U/L (10-37); BILIRUBIN,TOTAL 0.3 MG/DL (0.1-1.0); BLOOD UREA NITROGEN 39 MG/DL (7-18); BUN/CREATININE RATIO 31.7 (5.4-32.0); CALCIUM 9.7 MG/DL (8.5-10.1); CHLORIDE 104 MMOL/L (99-107); CREATININE 1.23 MG/DL (0.60-1.10); GLUCOSE 179 MG/DL (70-104); POTASSIUM 5.3 MMOL/L (3.5-5.1); SODIUM 138 MMOL/L (135-145); TOTAL CARBON DIOXIDE 29.8 MMOL/L (24-32); TOTAL PROTEIN 6.3 G/DL (6.4-8.2); eGFR 58 ML/MIN
[2018-07-28] MEDS: budesonide 0.5mg/2ml UD nebule IH SCH ×2 (07:19→19:20)
[2018-07-28] MEDS: enoxaparin 40mg/0.4ml syringe SUBCUT SCH (08:00)
[2018-07-28] MEDS: lactose-reduced food (Ensure High Protein) 237ml bottle PO SCH ×3 (08:00→18:00)
[2018-07-28] MEDS: aspirin 81mg tab.chew PO SCH (09:04)
[2018-07-28] MEDS: lisinopril 5mg tablet PO SCH (09:04)
[2018-07-28] MEDS: metoprolol succinate 25mg (24-HOUR) SR. Tablet PO SCH (09:04)
[2018-07-28] MEDS: atorvastatin 10mg tablet PO SCH (09:05)
[2018-07-28] MEDS: buPROPion SR 150mg tablet PO SCH (09:05)
--- NOTE | 2018-07-28 13:42 | NUR ---
Informed MD Murphy patient refusing lovenox and insulin and wishes to take home med glipizide. Dr states no glipizide at this time
--- NOTE | 2018-07-28 16:41 | NUR ---
PAGER ID: [phone] MESSAGE: Room 3027A. Latonya. provided MD imaging report. placed in chart . pedro [phone]
--- NOTE | 2018-07-28 18:34 | NUR ---
Problems reprioritized. Patient report given, questions answered & plan of care reviewed with Alicia Moya RN, pt greeted at bedside.
[2018-07-28] MEDS: insulin glargine (Lantus) pen - multi-dose SQ SCH (21:00)
--- NOTE | 2018-07-29 01:32 | NUR ---
The pt was found in the [facility] and he was very confused stating he was going to the refrigerator because his cigarettes were in it. When staff tried to help him back to his room and redirect him as to where he was at he became combative and a lui herrera had to be called to safely get him back to his room where he went back to his bed. Dr Davis called about the Lui Herrera and was told about the patients confusion and being combative, trying to get into other patients rooms, and the Tele room wanting his cigarettes. For the patients safety Dr Davis ordered a sitter for the pt if needed.
--- NOTE | 2018-07-29 02:00 | NUR ---
Pt refused 0200 VS. He has been sleeping with no s/s of distress.
[2018-07-29] MEDS: ipratropium/albuterol 3ml nebule NEB SCH ×6 (03:00→22:56)
[2018-07-29 06:00] VITALS: BP 145/54
[2018-07-29] MEDS: budesonide 0.5mg/2ml UD nebule IH SCH ×2 (07:28→18:56)
[2018-07-29] MEDS: buPROPion SR 150mg tablet PO SCH (07:45)
[2018-07-29] MEDS: atorvastatin 10mg tablet PO SCH (07:45)
[2018-07-29] MEDS: lisinopril 5mg tablet PO SCH (07:45)
[2018-07-29] MEDS: metoprolol succinate 25mg (24-HOUR) SR. Tablet PO SCH (07:45)
[2018-07-29] MEDS: aspirin 81mg tab.chew PO SCH (07:46)
[2018-07-29] MEDS: enoxaparin 40mg/0.4ml syringe SUBCUT SCH (07:46)
[2018-07-29] MEDS: predniSONE 20 mg tablet PO SCH (07:46)
[2018-07-29] MEDS: lactose-reduced food (Ensure High Protein) 237ml bottle PO SCH ×3 (08:00→18:00)
[2018-07-29 11:00] VITALS: BP 144/63
--- NOTE | 2018-07-29 14:08 | NUR ---
PAGED RT FOR ABG "ABG ORDERED FOR 3027A. NATANAEL BOWMAN. THANK YOU, GEOVANNI [facility] [phone]"
[2018-07-29 14:56] LABS: ABG BASE EXCESS 6.8 mmol/L (-2.0-3.0); ABG HCO3 33.3 mmol/L (22.0-26.0); ABG OXYGEN SATURATION 95.6 % (95-98); ABG PH (T) 7.392 (7.350-7.450); ABG PO2 (T) 78.2 mmHg (83-108); ALLEN'S TEST Positive; FCOHb 0.3 % (0.5-1.5); FLOW 2 L/min; FMetHb 0.1 % (0.3-1.12); FO2Hb 95.2 % (94-100); TOTAL HEMOGLOBIN 12.6 G/dl (14.0-18.0)
[2018-07-29 15:00] VITALS: BP 164/59
[2018-07-29 15:15] LABS: BASOPHILS % (AUTO) 0.2 % (0-1); EOSINOPHILS % (AUTO) 0 % (0-6); HEMATOCRIT 36.9 % (42.0-52.0); LYMPHOCYTES # (AUTO) 0.7 X10'3 (1.1-4.8); LYMPHOCYTES % (AUTO) 7.2 % (21-51); MEAN CORPUSCULAR HEMOGLOBIN 30.2 PG (27.0-31.0); MEAN CORPUSCULAR HGB CONC 32.5 g/dL (33.0-36.5); MEAN PLATELET VOLUME 7.4 FL (7.4-10.4); MONOCYTES # (AUTO) 0.3 X10'3 (0-0.9); MONOCYTES % (AUTO) 3.8 % (2-12); NEUTROPHILS # (AUTO) 8.2 X10'3 (1.8-7.7); NEUTROPHILS % (AUTO) 88.8 % (42-75); PLATELET COUNT 322 X10'3 (140-440); RED BLOOD COUNT 3.97 X10'6 (4.70-6.10); RED CELL DISTRIBUTION WIDTH 15.4 % (11.5-14.5); WHITE BLOOD COUNT 9.2 X10'3 (4.5-11.0)
[2018-07-29 15:31] LABS: ALANINE AMINOTRANSFERASE 29 U/L (12-78); ALBUMIN 3.3 G/DL (3.4-5.0); ALBUMIN/GLOBULIN RATIO 0.9 (1.1-1.5); ALKALINE PHOSPHATASE 40 IU/L (46-116); ANION GAP 7 (8-16); ASPARTATE AMINO TRANSFERASE 30 U/L (10-37); BILIRUBIN,TOTAL 0.3 MG/DL (0.1-1.0); BLOOD UREA NITROGEN 44 MG/DL (7-18); BUN/CREATININE RATIO 33.8 (5.4-32.0); CALCIUM 9.5 MG/DL (8.5-10.1); CHLORIDE 95 MMOL/L (99-107); GLUCOSE 180 MG/DL (70-104); SODIUM 134 MMOL/L (135-145); TOTAL CARBON DIOXIDE 32.1 MMOL/L (24-32); TOTAL PROTEIN 6.8 G/DL (6.4-8.2); eGFR 55 ML/MIN
[2018-07-29 15:34] LABS: POTASSIUM 5.2 MMOL/L (3.5-5.1)
[2018-07-29] MEDS: levoFLOXACIN-Levaquin 250mg/D5 50 ML IV SCH (16:01)
[2018-07-29] MEDS: vancomycin/NS 1 GM ADD-VANTAGE 250 ML IV SCH (17:05)
[2018-07-29 18:00] VITALS: BP 138/48
--- NOTE | 2018-07-29 18:17 | NUR ---
Problems reprioritized. Patient report given, questions answered & plan of care reviewed with STEPHANIE HASTINGS.
--- NOTE | 2018-07-29 18:17 | NUR ---
Patient in room PCU 3027. I have received report from Liz BROWN and had the opportunity to ask questions and assume patient care.
[2018-07-29] MEDS: insulin glargine (Lantus) pen - multi-dose SQ SCH (21:00)
[2018-07-29 22:00] VITALS: BP 147/70
[2018-07-29] MEDS: temazepam 15mg capsule PO PRN (22:01)
[2018-07-30] MEDS ORDERED: budesonide 0.5mg/2ml UD nebule IH SCH (00:10)
[2018-07-30 02:00] VITALS: BP 152/70
[2018-07-30] MEDS: ipratropium/albuterol 3ml nebule NEB SCH ×3 (03:26→11:31)
[2018-07-30] MEDS: vancomycin/NS 1 GM ADD-VANTAGE 250 ML IV SCH (04:15)
--- NOTE | 2018-07-30 04:54 | NUR ---
I have reviewed and agree with all interventions, assessments performed and documented by Judie Scruggs.
--- NOTE | 2018-07-30 04:55 | NUR ---
[place] Medication Administration: For this medication-pass time frame, all medication were reviewed, dispensed, administered and documented per hospital policy by STEPHANIE Scruggs.
[2018-07-30 05:13] LABS: BASOPHILS % (AUTO) 0.1 % (0-1); EOSINOPHILS # (AUTO) 0.1 X10'3 (0-0.9); EOSINOPHILS % (AUTO) 0.7 % (0-6); HEMATOCRIT 37.8 % (42.0-52.0); HEMOGLOBIN 12.5 g/dl (14.0-17.9); LYMPHOCYTES # (AUTO) 1.9 X10'3 (1.1-4.8); LYMPHOCYTES % (AUTO) 21.1 % (21-51); MEAN CORPUSCULAR HEMOGLOBIN 30.5 PG (27.0-31.0); MEAN CORPUSCULAR HGB CONC 32.9 g/dL (33.0-36.5); MEAN CORPUSCULAR VOLUME 92.5 FL (78-98); MEAN PLATELET VOLUME 7.3 FL (7.4-10.4); MONOCYTES % (AUTO) 11.3 % (2-12); NEUTROPHILS # (AUTO) 6.1 X10'3 (1.8-7.7); NEUTROPHILS % (AUTO) 66.8 % (42-75); PLATELET COUNT 312 X10'3 (140-440); RED BLOOD COUNT 4.09 X10'6 (4.70-6.10); RED CELL DISTRIBUTION WIDTH 15.4 % (11.5-14.5); WHITE BLOOD COUNT 9.1 X10'3 (4.5-11.0)
[2018-07-30 05:40] LABS: ALANINE AMINOTRANSFERASE 30 U/L (12-78); ALBUMIN 3.5 G/DL (3.4-5.0); ALKALINE PHOSPHATASE 36 IU/L (46-116); ANION GAP 5 (8-16); ASPARTATE AMINO TRANSFERASE 24 U/L (10-37); BILIRUBIN,TOTAL 0.4 MG/DL (0.1-1.0); BLOOD UREA NITROGEN 41 MG/DL (7-18); BUN/CREATININE RATIO 32.8 (5.4-32.0); CALCIUM 9.6 MG/DL (8.5-10.1); CHLORIDE 98 MMOL/L (99-107); CREATININE 1.25 MG/DL (0.60-1.10); GLUCOSE 131 MG/DL (70-104); POTASSIUM 4.6 MMOL/L (3.5-5.1); SODIUM 138 MMOL/L (135-145); TOTAL CARBON DIOXIDE 34.9 MMOL/L (24-32); TOTAL PROTEIN 6.9 G/DL (6.4-8.2); eGFR 57 ML/MIN
--- NOTE | 2018-07-30 06:10 | NUR ---
Problems reprioritized. Patient report give to STEPHANIE Covarrubias, questions answered & plan of care reviewed.
--- NOTE | 2018-07-30 06:41 | NUR ---
Patient in room PCU 3027. I have received report from Tess/Sheba BROWN and had the opportunity to ask questions and assume patient care.
[2018-07-30 07:34] VITALS: BP 155/63
[2018-07-30] MEDS: enoxaparin 40mg/0.4ml syringe SUBCUT SCH (08:00)
[2018-07-30] MEDS: lactose-reduced food (Ensure High Protein) 237ml bottle PO SCH (08:05)
[2018-07-30] MEDS: atorvastatin 10mg tablet PO SCH (08:06)
[2018-07-30] MEDS: aspirin 81mg tab.chew PO SCH (08:06)
[2018-07-30] MEDS: metoprolol succinate 25mg (24-HOUR) SR. Tablet PO SCH (08:06)
[2018-07-30] MEDS: buPROPion SR 150mg tablet PO SCH (08:06)
[2018-07-30] MEDS: predniSONE 20 mg tablet PO SCH (08:07)
[2018-07-30] MEDS: lisinopril 5mg tablet PO SCH (08:07)
[2018-07-30] MEDS: levoFLOXACIN-Levaquin 250mg/D5 50 ML IV SCH (08:09)
[2018-07-30] MEDS ORDERED: LEVO750T21 PO (08:30)
[2018-07-30 11:00] VITALS: BP 144/61
--- NOTE | 2018-07-30 11:00 | NUR ---
Patient down in nuclear medicine for a abran scan.
--- NOTE | 2018-07-30 11:45 | NUR ---
Patient discharged into the care of his family, patient was educated on discharge teaching and new medications. Medications were delivered by ramirez bedside. Patients IV was taken out at this time and IV site showed minimal bleeding and canula was whole and intact upon discharge. [facility] and transported home by .
[2018-07-31] MEDS ORDERED: VANCOMYCIN LEVEL IV ONE (03:30)
== END 2018-07-30 11:40 | disposition home or self-care (01) | DRG 177 ==
LOC: ER 20:49 → PCU 3S 07-27 07:19 → CMPBEDREQ 07-27 19:31
PROVIDERS: ADMIT Internal Medicine; ATTEND Internal Medicine
PROC: 5A09357 Assistance with Respiratory Ventilation, Less than 24 Consecutive Hours, Continuous Positive Airway Pressure (ICD-10-PCS; principal; 2018-07-27)
PROC: 5A09357 Assistance with Respiratory Ventilation, Less than 24 Consecutive Hours, Continuous Positive Airway Pressure (ICD-10-PCS; 2018-07-28)
DX: J15.6 Pneumonia due to other Gram-negative bacteria (principal); R65.11 Systemic inflammatory response syndrome (SIRS) of non-infectious origin with acute organ dysfunction; J96.21 Acute and chronic respiratory failure with hypoxia; J96.02 Acute respiratory failure with hypercapnia; J44.1 Chronic obstructive pulmonary disease with (acute) exacerbation; C78.00 Secondary malignant neoplasm of unspecified lung; J44.0 Chronic obstructive pulmonary disease with (acute) lower respiratory infection; D64.9 Anemia, unspecified; E87.5 Hyperkalemia; E11.22 Type 2 diabetes mellitus with diabetic chronic kidney disease; I12.9 Hypertensive chronic kidney disease with stage 1 through stage 4 chronic kidney disease, or unspecified chronic kidney disease; I25.10 Atherosclerotic heart disease of native coronary artery without angina pectoris; N18.3 Chronic kidney disease, stage 3 (moderate); F17.210 Nicotine dependence, cigarettes, uncomplicated; Z85.528 Personal history of other malignant neoplasm of kidney; Z92.21 Personal history of antineoplastic chemotherapy; Z71.6 Tobacco abuse counseling
CPT/HCPCS: 36415; 36600; 71045; 80053; 82803; 82948; 83036; 83735; 83880; 84100; 84484; 85018; 85025; 85610; 85730; 87070; 87077; 87186; 93005; 94640; 94660; 94760; 96361; 96374; 96375; 99285; G0378; J1650; J1815; J1956; J2405; J2920; J2930; J3370; J7512; J7611; J7626

== ENCOUNTER 2018-08-15 14:16 | Emergency (ER) | payer MEDICARE ==
[~2018-08-15] VITALS: Ht 177.8 cm; Wt 69.5 kg
[~2018-08-15 14:16] MED LIST changes: +ALBU18HF2 IH; +ASPI-1265 PO; +BUPR-83 PO; -FENO135C3 PO; +FENO145T25 PO; -HYDR-3972 PO; -IBUP-24 PO; +LEVO750T21 PO; +LISI-604 PO; -LISI10TA4 PO; -OXYC-150 PO
--- NOTE | 2018-08-15 14:58 | NUR ---
RELIEVING RN FOR BREAK, PT C/O SOB, RT HAS BEEN PAGED, PT IN SITTING IN H[place], RESP EVEN, SLIGHTLY LABORED, SKIN P/W/D
[2018-08-15] MEDS ORDERED: ipratropium/albuterol 3ml nebule NEB ONE (15:00)
[2018-08-15] MEDS ORDERED: ipratropium/albuterol 3ml nebule NEB SCH (15:00)
[2018-08-15 15:04] LABS: BASOPHILS % (AUTO) 0.3 % (0-1); EOSINOPHILS % (AUTO) 0.1 % (0-6); HEMATOCRIT 43.8 % (42.0-52.0); HEMOGLOBIN 14.3 g/dl (14.0-17.9); LYMPHOCYTES % (AUTO) 7.8 % (21-51); MEAN CORPUSCULAR HEMOGLOBIN 30.9 PG (27.0-31.0); MEAN CORPUSCULAR HGB CONC 32.7 g/dL (33.0-36.5); MEAN CORPUSCULAR VOLUME 94.3 FL (78-98); MEAN PLATELET VOLUME 7.4 FL (7.4-10.4); MONOCYTES # (AUTO) 0.9 X10'3 (0-0.9); MONOCYTES % (AUTO) 6.6 % (2-12); NEUTROPHILS % (AUTO) 85.2 % (42-75); PLATELET COUNT 229 X10'3 (140-440); RED BLOOD COUNT 4.65 X10'6 (4.70-6.10); RED CELL DISTRIBUTION WIDTH 15.4 % (11.5-14.5)
[2018-08-15 15:14] LABS: ALANINE AMINOTRANSFERASE 30 U/L (12-78); ALBUMIN 3.7 G/DL (3.4-5.0); ALBUMIN/GLOBULIN RATIO 1.1 (1.1-1.5); ALKALINE PHOSPHATASE 44 IU/L (46-116); ANION GAP 2 (8-16); ASPARTATE AMINO TRANSFERASE 15 U/L (10-37); BILIRUBIN,TOTAL 0.4 MG/DL (0.1-1.0); BLOOD UREA NITROGEN 41 MG/DL (7-18); BUN/CREATININE RATIO 29.9 (5.4-32.0); CALCIUM 9.9 MG/DL (8.5-10.1); CHLORIDE 101 MMOL/L (99-107); CREATININE 1.37 MG/DL (0.60-1.10); GLUCOSE 222 MG/DL (70-104); POTASSIUM 5.2 MMOL/L (3.5-5.1); SODIUM 137 MMOL/L (135-145); TOTAL CARBON DIOXIDE 34.5 MMOL/L (24-32); TOTAL PROTEIN 7.1 G/DL (6.4-8.2); eGFR 52 ML/MIN
[2018-08-15 15:19] LABS: PARTIAL THROMBOPLASTIN TIME 23 SECONDS (22-32)
[2018-08-15] MEDS ORDERED: ipratropium/albuterol 3ml nebule NEB STA (15:32)
[2018-08-15] MEDS ORDERED: furosemide 10 MG/1 ML 10ml inj IV ONE (15:45)
[2018-08-15] MEDS ORDERED: albuterol 2.5 MG/3 ML nebule CONTNEB PRN (15:50)
[2018-08-15 16:13] LABS: D-DIMER 2.02 MG/L FEU (0-0.50)
[2018-08-15] MEDS ORDERED: iohexol 350MG/ML 100ml bottle IV ONE (16:42)
[2018-08-15] MEDS ORDERED: ROSU40TA PO (16:59)
--- NOTE | 2018-08-15 17:58 | NUR ---
RT AT BEDSIDE ABG COMPLETED
[2018-08-15 18:01] LABS: ABG BASE EXCESS 7.1 mmol/L (-2.0-3.0); ABG HCO3 35.3 mmol/L (22.0-26.0); ABG PCO2 (T) 66.2 mmHg (35.0-48.0); ABG PH (T) 7.345 (7.350-7.450); ABG PO2 (T) 60.5 mmHg (83-108); ALLEN'S TEST Positive; FCOHb 4.8 % (0.5-1.5); FLOW 2 L/min; FMetHb 0.1 % (0.3-1.12); FO2Hb 86.5 % (94-100); TOTAL HEMOGLOBIN 14.7 G/dl (14.0-18.0)
[2018-08-15 18:57] VITALS: BP 114/91
[2018-08-15] MEDS ORDERED: FURO-150 PO (19:01)
== END 2018-08-15 19:14 | disposition home or self-care (01) ==
LOC: ER 14:17
DX: J44.1 Chronic obstructive pulmonary disease with (acute) exacerbation (principal); R91.1 Solitary pulmonary nodule; E87.2 Acidosis; C79.00 Secondary malignant neoplasm of unspecified kidney and renal pelvis; E87.5 Hyperkalemia; I25.10 Atherosclerotic heart disease of native coronary artery without angina pectoris; I10 Essential (primary) hypertension; J44.9 Chronic obstructive pulmonary disease, unspecified; E11.9 Type 2 diabetes mellitus without complications; Z79.82 Long term (current) use of aspirin
CPT/HCPCS: 94640; 94644; 96374; 99285; J1940; Q9967; 36415; 36600; 71046; 71275; 80053; 82803; 83605; 83880; 85018; 85025; 85379; 85610; 85730; 87040; 93005

== ENCOUNTER 2018-08-17 19:16 | Inpatient (IN) | payer MEDICARE ==
[~2018-08-17] VITALS: Ht 177.8 cm; Wt 69.0 kg
[~2018-08-17 19:16] MED LIST changes: +FURO-150 PO
[2018-08-17] MEDS ORDERED: normal saline 1000ML IV soln IVB ONE (19:45)
[2018-08-17] MEDS ORDERED: albuterol 2.5 MG/3 ML nebule CONTNEB PRN (19:45)
[2018-08-17] MEDS ORDERED: methylPREDNISolone sod succ 125mg/2ml vial IV ONE (19:45)
--- NOTE | 2018-08-17 20:00 | NUR ---
RT AT BEDSIDE
[2018-08-17 20:01] LABS: BASOPHILS # (AUTO) 0.1 X10'3 (0-0.2); BASOPHILS % (AUTO) 0.4 % (0-1); EOSINOPHILS # (AUTO) 0.1 X10'3 (0-0.9); EOSINOPHILS % (AUTO) 0.5 % (0-6); HEMATOCRIT 45.3 % (42.0-52.0); HEMOGLOBIN 14.6 g/dl (14.0-17.9); LYMPHOCYTES # (AUTO) 1.6 X10'3 (1.1-4.8); LYMPHOCYTES % (AUTO) 10.3 % (21-51); MEAN CORPUSCULAR HEMOGLOBIN 30.3 PG (27.0-31.0); MEAN CORPUSCULAR HGB CONC 32.1 g/dL (33.0-36.5); MEAN CORPUSCULAR VOLUME 94.3 FL (78-98); MEAN PLATELET VOLUME 7.7 FL (7.4-10.4); MONOCYTES # (AUTO) 1.1 X10'3 (0-0.9); MONOCYTES % (AUTO) 7.4 % (2-12); NEUTROPHILS # (AUTO) 12.6 X10'3 (1.8-7.7); NEUTROPHILS % (AUTO) 81.4 % (42-75); PLATELET COUNT 201 X10'3 (140-440); RED BLOOD COUNT 4.81 X10'6 (4.70-6.10); RED CELL DISTRIBUTION WIDTH 15.5 % (11.5-14.5); WHITE BLOOD COUNT 15.5 X10'3 (4.5-11.0)
[2018-08-17 20:11] LABS: ABG BASE EXCESS 10.2 mmol/L (-2.0-3.0); ABG HCO3 37.1 mmol/L (22.0-26.0); ABG OXYGEN SATURATION 94.4 % (95-98); ABG PCO2 (T) 57.3 mmHg (35.0-48.0); ABG PH (T) 7.427 (7.350-7.450); ABG PO2 (T) 66.3 mmHg (83-108); ALLEN'S TEST Positive; FCOHb 4.6 % (0.5-1.5); FLOW 2 L/min; FMetHb 0.1 % (0.3-1.12); PATIENT TEMPERATURE 36.7; RESPIRATORY RATE (OBSERVED) 20 b/min; TOTAL HEMOGLOBIN 15.1 G/dl (14.0-18.0)
[2018-08-17 20:15] LABS: ALANINE AMINOTRANSFERASE 27 U/L (12-78); ALBUMIN 3.6 G/DL (3.4-5.0); ALBUMIN/GLOBULIN RATIO 1.2 (1.1-1.5); ALKALINE PHOSPHATASE 41 IU/L (46-116); ANION GAP 2 (8-16); ASPARTATE AMINO TRANSFERASE 14 U/L (10-37); BILIRUBIN,TOTAL 0.5 MG/DL (0.1-1.0); BLOOD UREA NITROGEN 57 MG/DL (7-18); BUN/CREATININE RATIO 31.7 (5.4-32.0); CALCIUM 10.1 MG/DL (8.5-10.1); CHLORIDE 100 MMOL/L (99-107); GLUCOSE 218 MG/DL (70-104); POTASSIUM 5.1 MMOL/L (3.5-5.1); SODIUM 139 MMOL/L (135-145); TOTAL CARBON DIOXIDE 37.2 MMOL/L (24-32); TOTAL PROTEIN 6.7 G/DL (6.4-8.2); eGFR 38 ML/MIN
[2018-08-17] MEDS ORDERED: azithromycin/NS 500mg/250ml 250 ML IV ONE (20:15)
[2018-08-17] MEDS ORDERED: CefTRIAXone 2gm/D5W 50ml 50 ML IV ONE (20:15)
--- NOTE | 2018-08-17 22:33 | NUR ---
AND DR. AGUILERA AT BEDSIDE.
[2018-08-17] MEDS ORDERED: FURO-150 PO (22:35)
[2018-08-17] MEDS ORDERED: [UNRECOGNIZED DRUG - MIXTURE] PO (22:40)
[2018-08-17] MEDS ORDERED: ALB0.5UD IH (22:40)
[2018-08-17] MEDS ORDERED: [UNRECOGNIZED DRUG - OTHER] PO (22:40)
[2018-08-17] MEDS ORDERED: FLAX1CAP4 PO (22:40)
[2018-08-17] MEDS ORDERED: [UNRECOGNIZED DRUG - OTHER] (22:40)
[2018-08-17] MEDS ORDERED: DANDELION ROOT PO (22:40)
[2018-08-17] MEDS ORDERED: FUCOIDAN PO (22:40)
[2018-08-17] MEDS ORDERED: PRED20TA PO (22:42)
[2018-08-17] MEDS ORDERED: COLLOIDAL SILVER PO (22:42)
[2018-08-17] MEDS ORDERED: magnesium hydroxide 30ml (MOM) UD suspension PO PRN (23:00)
[2018-08-17] MEDS ORDERED: HYDROcodone/acetaminophen 5mg/325mg tablet PO PRN (23:00)
[2018-08-17] MEDS ORDERED: acetaminophen 325mg tablet PO PRN (23:00)
[2018-08-17] MEDS ORDERED: HYDROcodone/acetaminophen 10/325mg tab PO PRN (23:00)
[2018-08-17] MEDS ORDERED: mag hydrox/Alum hydrox/simeth 30ml oral suspension PO PRN (23:00)
[2018-08-17] MEDS ORDERED: ondansetron/PF 4mg/2ml inj IV PRN (23:00)
[2018-08-17] MEDS ORDERED: albuterol 2.5 MG/3 ML nebule NEB PRN (23:25)
[2018-08-18 00:09] VITALS: BP 131/65
[2018-08-18] MEDS: temazepam 15mg capsule PO PRN ×2 (00:47→23:06)
[2018-08-18] MEDS ORDERED: dextrose ORAL solution 15 GM/59 ML bottle PO PRN ×2 (01:20)
[2018-08-18] MEDS ORDERED: insulin Lispro (HumaLOG) vial - multi-dose SQ ONE (01:20)
[2018-08-18] MEDS ORDERED: insulin Lispro (HumaLOG) vial - multi-dose SQ SCH (01:20)
[2018-08-18] MEDS ORDERED: glucagon, human recombinant 1mg kit SUBCUT PRN (01:20)
[2018-08-18] MEDS ORDERED: MESSAGE TO PHARMACY PO ONE (01:20)
[2018-08-18] MEDS ORDERED: dextrose 50%-water 50ml dispensing syringe IV PRN ×2 (01:20)
[2018-08-18] MEDS ORDERED: albuterol 2.5 MG/3 ML nebule NEB SCH (02:00)
[2018-08-18] MEDS ORDERED: ipratropium 0.5 MG/2.5ML nebule IH SCH (02:00)
[2018-08-18] MEDS: ipratropium/albuterol 3ml nebule IH SCH ×3 (03:36→19:41)
[2018-08-18 04:22] LABS: BASOPHILS % (AUTO) 0.2 % (0-1); EOSINOPHILS % (AUTO) 0 % (0-6); HEMATOCRIT 40.9 % (42.0-52.0); HEMOGLOBIN 13.1 g/dl (14.0-17.9); LYMPHOCYTES # (AUTO) 0.5 X10'3 (1.1-4.8); MEAN CORPUSCULAR HEMOGLOBIN 30.2 PG (27.0-31.0); MEAN CORPUSCULAR VOLUME 94.4 FL (78-98); MONOCYTES # (AUTO) 0.1 X10'3 (0-0.9); MONOCYTES % (AUTO) 1.1 % (2-12); NEUTROPHILS # (AUTO) 9.2 X10'3 (1.8-7.7); NEUTROPHILS % (AUTO) 93.7 % (42-75); PLATELET COUNT 172 X10'3 (140-440); RED BLOOD COUNT 4.33 X10'6 (4.70-6.10); RED CELL DISTRIBUTION WIDTH 15.4 % (11.5-14.5); WHITE BLOOD COUNT 9.9 X10'3 (4.5-11.0)
[2018-08-18 04:30] LABS: ALANINE AMINOTRANSFERASE 23 U/L (12-78); ALKALINE PHOSPHATASE 35 IU/L (46-116); ANION GAP 2 (8-16); ASPARTATE AMINO TRANSFERASE 16 U/L (10-37); BILIRUBIN,TOTAL 0.2 MG/DL (0.1-1.0); BLOOD UREA NITROGEN 58 MG/DL (7-18); BUN/CREATININE RATIO 31.5 (5.4-32.0); CALCIUM 9.3 MG/DL (8.5-10.1); CHLORIDE 103 MMOL/L (99-107); CREATININE 1.84 MG/DL (0.60-1.10); GLUCOSE 360 MG/DL (70-104); POTASSIUM 4.8 MMOL/L (3.5-5.1); SODIUM 140 MMOL/L (135-145); TOTAL CARBON DIOXIDE 35.1 MMOL/L (24-32); TOTAL PROTEIN 5.9 G/DL (6.4-8.2); eGFR 37 ML/MIN
[2018-08-18 07:18] VITALS: BP 150/67
[2018-08-18] MEDS: fenofibrate 145mg tablet PO SCH (07:39)
[2018-08-18] MEDS: metoprolol succinate 25mg (24-HOUR) SR. Tablet PO SCH (07:39)
[2018-08-18] MEDS: lisinopril 5mg tablet PO SCH (07:39)
[2018-08-18] MEDS: aspirin 81mg tab.chew PO SCH (07:39)
[2018-08-18] MEDS: heparin, porcine 5000 units/ml vial SQ SCH ×2 (07:40→20:00)
[2018-08-18] MEDS: atorvastatin 20mg tablet PO SCH (07:40)
[2018-08-18] MEDS ORDERED: non-formulary drug (Metoprolol Succinate 1 TAB) PO SCH (08:00)
[2018-08-18] MEDS ORDERED: non-formulary drug (Rosuvastatin Calcium* (Crestor*) 1 TAB) PO SCH (08:00)
[2018-08-18] MEDS ORDERED: CefTRIAXone/D5W-Rocephin 1gm 50 ML IV SCH (08:00)
[2018-08-18] MEDS ORDERED: furosemide 20MG tablet PO SCH (08:00)
[2018-08-18] MEDS: budesonide 0.5mg/2ml UD nebule IH SCH ×2 (08:00→19:40)
[2018-08-18] MEDS ORDERED: non-formulary drug (Fluticasone/Salmeterol* (Advair 250-50 Diskus*) 1 INH) IH SCH (08:00)
[2018-08-18] MEDS ORDERED: non-formulary drug (Tiotropium Bromide* (Spiriva*) 18 MCG) IH SCH (08:00)
[2018-08-18] MEDS ORDERED: methylPREDNISolone sod succ 125mg/2ml vial IV SCH (08:00)
[2018-08-18] MEDS ORDERED: furosemide 20 MG/2 ML vial IV SCH (08:10)
[2018-08-18 11:00] VITALS: BP 115/65
[2018-08-18] MEDS: ipratropium/albuterol 3ml nebule NEB SCH ×4 (11:22→23:31)
[2018-08-18] MEDS: methylPREDNISolone sod succ 125mg/2ml vial IV SCH ×2 (12:26→20:37)
--- NOTE | 2018-08-18 14:00 | NUR ---
Patient stated he wishes to be full code. Dr. Valle aware.
--- NOTE | 2018-08-18 15:24 | NUR ---
DM consult, A1c 7.2, patient given written DM education handout with verbal review and referral to Thursday DM education class. Addendum: 08/18/18 at [address] Amended: Links added.
[2018-08-18] MEDS: cefepime 1GM/NS ADD-VANTAGE 100 ML IV SCH (16:16)
[2018-08-18 20:00] VITALS: BP 125/78
--- NOTE | 2018-08-18 20:28 | NUR ---
Patient refuse heparin SQ tonight. Patient refuse nurse to check BS at 2000. Inform patient that morning nurse will check his BS in the AM to make sure his BS does not run to low because he will be started on his PO Glipizide and his kidney function is not so great and the medication can stay in his body longer and can cause him to have a lower BS reading. Patient states understanding, and is compliant for the AM nurse to check his BS.
[2018-08-18] MEDS ORDERED: insulin glargine (Lantus) pen - multi-dose SQ SCH (21:00)
[2018-08-19 00:02] VITALS: BP 125/63
[2018-08-19] MEDS: cefepime 1GM/NS ADD-VANTAGE 100 ML IV SCH ×2 (00:19→07:43)
[2018-08-19 05:30] LABS: BASOPHILS % (AUTO) 0.1 % (0-1); EOSINOPHILS % (AUTO) 0 % (0-6); HEMATOCRIT 39.3 % (42.0-52.0); HEMOGLOBIN 12.8 g/dl (14.0-17.9); LYMPHOCYTES # (AUTO) 0.6 X10'3 (1.1-4.8); LYMPHOCYTES % (AUTO) 5.6 % (21-51); MEAN CORPUSCULAR HEMOGLOBIN 30.4 PG (27.0-31.0); MEAN CORPUSCULAR HGB CONC 32.6 g/dL (33.0-36.5); MEAN CORPUSCULAR VOLUME 93.1 FL (78-98); MEAN PLATELET VOLUME 8.1 FL (7.4-10.4); MONOCYTES # (AUTO) 0.3 X10'3 (0-0.9); MONOCYTES % (AUTO) 3.1 % (2-12); NEUTROPHILS # (AUTO) 10.2 X10'3 (1.8-7.7); NEUTROPHILS % (AUTO) 91.2 % (42-75); PLATELET COUNT 171 X10'3 (140-440); RED BLOOD COUNT 4.22 X10'6 (4.70-6.10); WHITE BLOOD COUNT 11.2 X10'3 (4.5-11.0)
[2018-08-19 05:52] LABS: ALANINE AMINOTRANSFERASE 26 U/L (12-78); ALKALINE PHOSPHATASE 36 IU/L (46-116); ANION GAP 5 (8-16); ASPARTATE AMINO TRANSFERASE 17 U/L (10-37); BILIRUBIN,TOTAL 0.3 MG/DL (0.1-1.0); BLOOD UREA NITROGEN 60 MG/DL (7-18); BUN/CREATININE RATIO 38.5 (5.4-32.0); CALCIUM 8.8 MG/DL (8.5-10.1); CHLORIDE 100 MMOL/L (99-107); CREATININE 1.56 MG/DL (0.60-1.10); GLUCOSE 306 MG/DL (70-104); POTASSIUM 4.9 MMOL/L (3.5-5.1); SODIUM 138 MMOL/L (135-145); TOTAL CARBON DIOXIDE 33.4 MMOL/L (24-32); TOTAL PROTEIN 5.9 G/DL (6.4-8.2); eGFR 44 ML/MIN
[2018-08-19 07:00] VITALS: BP 118/52
--- NOTE | 2018-08-19 07:00 | NUR ---
Patient in room [facility] 344. I have received report from Connie and had the opportunity to ask questions and assume patient care. Addendum: 08/19/18 at 1002 by Ruby Isidro RN Amended: Links added.
[2018-08-19] MEDS: ipratropium/albuterol 3ml nebule NEB SCH ×3 (07:15→15:00)
[2018-08-19] MEDS: budesonide 0.5mg/2ml UD nebule IH SCH (07:15)
[2018-08-19] MEDS ORDERED: glipizide 5mg tablet PO SCH ×2 (07:30)
[2018-08-19] MEDS: methylPREDNISolone sod succ 125mg/2ml vial IV SCH (07:44)
[2018-08-19] MEDS: metoprolol succinate 25mg (24-HOUR) SR. Tablet PO SCH (07:44)
[2018-08-19] MEDS: fenofibrate 145mg tablet PO SCH (07:45)
[2018-08-19] MEDS: atorvastatin 20mg tablet PO SCH (07:45)
[2018-08-19] MEDS: aspirin 81mg tab.chew PO SCH (07:45)
[2018-08-19] MEDS: heparin, porcine 5000 units/ml vial SQ SCH (07:45)
[2018-08-19] MEDS: lisinopril 5mg tablet PO SCH (07:48)
[2018-08-19] MEDS ORDERED: PRED20TA PO (12:09)
[2018-08-19] MEDS ORDERED: CEFU500T66 PO (12:09)
[2018-08-19] MEDS ORDERED: MONT10TA21 PO (12:56)
[2018-08-19] MEDS ORDERED: AZEL30SP3 BOTHNARES (12:56)
== END 2018-08-19 14:30 | disposition home or self-care (01) | DRG 193 ==
LOC: ER 19:17 → SUR 3N 23:10 → CMPBEDREQ 23:29
PROVIDERS: ADMIT Internal Medicine; ATTEND Family Medicine
DX: J18.9 Pneumonia, unspecified organism (principal); J96.20 Acute and chronic respiratory failure, unspecified whether with hypoxia or hypercapnia; J44.0 Chronic obstructive pulmonary disease with (acute) lower respiratory infection; C64.9 Malignant neoplasm of unspecified kidney, except renal pelvis; C78.00 Secondary malignant neoplasm of unspecified lung; C79.31 Secondary malignant neoplasm of brain; J44.1 Chronic obstructive pulmonary disease with (acute) exacerbation; E78.5 Hyperlipidemia, unspecified; E11.65 Type 2 diabetes mellitus with hyperglycemia; E11.22 Type 2 diabetes mellitus with diabetic chronic kidney disease; I12.9 Hypertensive chronic kidney disease with stage 1 through stage 4 chronic kidney disease, or unspecified chronic kidney disease; N18.9 Chronic kidney disease, unspecified; F17.200 Nicotine dependence, unspecified, uncomplicated; I25.10 Atherosclerotic heart disease of native coronary artery without angina pectoris; Z79.51 Long term (current) use of inhaled steroids; Z79.84 Long term (current) use of oral hypoglycemic drugs; Z79.899 Other long term (current) drug therapy; Z99.81 Dependence on supplemental oxygen
CPT/HCPCS: 36415; 36600; 71045; 80053; 82803; 82948; 83880; 84484; 85018; 85025; 87040; 87070; 87077; 87186; 93005; 93308; 94640; 94760; 96361; 96365; 96368; 96375; 99291; G0378; J0456; J0692; J0696; J1644; J1815; J1940; J2930; J7626

== ENCOUNTER 2018-12-29 18:55 | Inpatient (IN) | payer MEDICARE ==
[~2018-12-29] VITALS: Ht 177.8 cm; Wt 67.9 kg
[~2018-12-29 18:55] MED LIST changes: +ALB0.5UD IH; +AZEL30SP3 BOTHNARES; -BUPR-83 PO; +CEFU500T66 PO; +COLLOIDAL SILVER PO; +DANDELION ROOT PO; +FLAX1CAP4 PO; +FUCOIDAN PO; -FURO-150 PO; -LEVO750T21 PO; +MONT10TA21 PO; +[UNRECOGNIZED DRUG - MIXTURE] PO; +[UNRECOGNIZED DRUG - OTHER]; +[UNRECOGNIZED DRUG - OTHER] PO
[2018-12-29] MEDS ORDERED: methylPREDNISolone sod succ 125mg/2ml vial IV ONE (19:00)
[2018-12-29] MEDS ORDERED: aspirin 81mg tab.chew PO ONE (19:00)
[2018-12-29] MEDS ORDERED: normal saline 1000ML IV soln IVB ONE (19:00)
[2018-12-29] MEDS ORDERED: ipratropium/albuterol 3ml nebule NEB ONE (19:00)
[2018-12-29] MEDS ORDERED: albuterol 2.5 MG/3 ML nebule NEB ONE (19:00)
[2018-12-29] MEDS ORDERED: ipratropium/albuterol 3ml nebule ONE (19:01)
[2018-12-29] MEDS ORDERED: FLUT1DIS4 INH (19:05)
[2018-12-29] MEDS ORDERED: MIRT15TA PO (19:05)
[2018-12-29 19:17] LABS: BASOPHILS % (AUTO) 0.3 % (0-1); EOSINOPHILS # (AUTO) 0.2 X10'3 (0-0.9); EOSINOPHILS % (AUTO) 2.1 % (0-6); HEMATOCRIT 39.1 % (42.0-52.0); HEMOGLOBIN 12.5 g/dl (14.0-17.9); LYMPHOCYTES # (AUTO) 1.3 X10'3 (1.1-4.8); LYMPHOCYTES % (AUTO) 13.7 % (21-51); MEAN CORPUSCULAR VOLUME 93.5 FL (78-98); MEAN PLATELET VOLUME 7.9 FL (7.4-10.4); MONOCYTES # (AUTO) 0.6 X10'3 (0-0.9); MONOCYTES % (AUTO) 6.7 % (2-12); NEUTROPHILS # (AUTO) 7.1 X10'3 (1.8-7.7); NEUTROPHILS % (AUTO) 77.2 % (42-75); PLATELET COUNT 291 X10'3 (140-440); RED BLOOD COUNT 4.18 X10'6 (4.70-6.10); RED CELL DISTRIBUTION WIDTH 14.7 % (11.5-14.5); WHITE BLOOD COUNT 9.2 X10'3 (4.5-11.0)
[2018-12-29 19:30] LABS: ALANINE AMINOTRANSFERASE 30 U/L (12-78); ALBUMIN 3.1 G/DL (3.4-5.0); ALBUMIN/GLOBULIN RATIO 0.7 (1.1-1.5); ALKALINE PHOSPHATASE 46 IU/L (46-116); ANION GAP -1 (8-16); ASPARTATE AMINO TRANSFERASE 21 U/L (10-37); BILIRUBIN,TOTAL 0.2 MG/DL (0.1-1.0); BLOOD UREA NITROGEN 19 MG/DL (7-18); BUN/CREATININE RATIO 17.6 (5.4-32.0); CALCIUM 10.8 MG/DL (8.5-10.1); CHLORIDE 102 MMOL/L (99-107); CREATININE 1.08 MG/DL (0.60-1.10); GLUCOSE 160 MG/DL (70-104); SODIUM 141 MMOL/L (135-145); TOTAL CARBON DIOXIDE 39.7 MMOL/L (24-32); TOTAL PROTEIN 7.3 G/DL (6.4-8.2); eGFR 68 ML/MIN
[2018-12-29] MEDS ORDERED: mag hydrox/Alum hydrox/simeth 30ml oral suspension PO PRN (20:35)
[2018-12-29] MEDS ORDERED: acetaminophen 325mg tablet PO PRN (20:35)
[2018-12-29] MEDS ORDERED: magnesium hydroxide 30ml (MOM) UD suspension PO PRN (20:35)
[2018-12-29] MEDS ORDERED: ondansetron/PF 4mg/2ml inj IV PRN (20:35)
[2018-12-29] MEDS ORDERED: MESSAGE TO PHARMACY PO ONE (20:45)
[2018-12-29] MEDS ORDERED: glucagon, human recombinant 1mg kit SUBCUT PRN (20:45)
[2018-12-29] MEDS ORDERED: dextrose 50%-water 50ml dispensing syringe IV PRN ×2 (20:45)
[2018-12-29] MEDS ORDERED: insulin Lispro (HumaLOG) vial - multi-dose SQ SCH (20:45)
[2018-12-29] MEDS ORDERED: dextrose ORAL solution 15 GM/59 ML bottle PO PRN ×2 (20:45)
[2018-12-29] MEDS ORDERED: temazepam 15mg capsule PO PRN (20:50)
[2018-12-29] MEDS ORDERED: CefTRIAXone 2gm/D5W 50ml 50 ML IV ONE (21:00)
[2018-12-29] MEDS ORDERED: insulin glargine (Lantus) pen - multi-dose SQ SCH (21:00)
--- NOTE | 2018-12-29 21:20 | NUR ---
Attempted to call report, was told by Laure BROWN that patient had not been assigned yet and that she would have the nurse call for report
--- NOTE | 2018-12-29 21:22 | NUR ---
Recheck of temperature 98.2
[2018-12-29] MEDS: mirtazapine 15mg tablet PO SCH (21:42)
--- NOTE | 2018-12-29 21:50 | NUR ---
Attempted to call reported again, was told that receiving nurse was putting in an IV at this time and would call back when they were through
--- NOTE | 2018-12-29 22:03 | NUR ---
Patient in room . I have received report from MIGUEL RESENDEZ RN and had the opportunity to ask questions and assume patient care.
[2018-12-30] VITALS (10 sets, daily range): BP systolic 122–180; BP diastolic 52–79
[2018-12-30] MEDS: albuterol 2.5 MG/3 ML nebule NEB PRN ×3 (00:16→14:52)
--- NOTE | 2018-12-30 01:29 | NUR ---
Dr. Davis ordered to changed diet to carb control and d/c troponin/ekg series
[2018-12-30] MEDS ORDERED: ipratropium 0.5 MG/2.5ML nebule IH SCH (02:00)
[2018-12-30 05:28] LABS: BASOPHILS % (AUTO) 0.1 % (0-1); EOSINOPHILS % (AUTO) 0 % (0-6); HEMATOCRIT 37.2 % (42.0-52.0); HEMOGLOBIN 11.9 g/dl (14.0-17.9); LYMPHOCYTES # (AUTO) 0.5 X10'3 (1.1-4.8); LYMPHOCYTES % (AUTO) 9.2 % (21-51); MEAN CORPUSCULAR HEMOGLOBIN 30.1 PG (27.0-31.0); MEAN CORPUSCULAR HGB CONC 31.9 g/dL (33.0-36.5); MEAN CORPUSCULAR VOLUME 94.5 FL (78-98); MEAN PLATELET VOLUME 8.2 FL (7.4-10.4); MONOCYTES % (AUTO) 0.8 % (2-12); NEUTROPHILS # (AUTO) 4.8 X10'3 (1.8-7.7); NEUTROPHILS % (AUTO) 89.9 % (42-75); PLATELET COUNT 251 X10'3 (140-440); RED BLOOD COUNT 3.94 X10'6 (4.70-6.10); RED CELL DISTRIBUTION WIDTH 15.2 % (11.5-14.5); WHITE BLOOD COUNT 5.3 X10'3 (4.5-11.0)
[2018-12-30 05:42] LABS: ALANINE AMINOTRANSFERASE 27 U/L (12-78); ALBUMIN/GLOBULIN RATIO 0.7 (1.1-1.5); ALKALINE PHOSPHATASE 45 IU/L (46-116); ANION GAP 4 (8-16); ASPARTATE AMINO TRANSFERASE 19 U/L (10-37); BILIRUBIN,TOTAL 0.2 MG/DL (0.1-1.0); BLOOD UREA NITROGEN 21 MG/DL (7-18); BUN/CREATININE RATIO 17.5 (5.4-32.0); CALCIUM 10.3 MG/DL (8.5-10.1); CHLORIDE 101 MMOL/L (99-107); GLUCOSE 222 MG/DL (70-104); POTASSIUM 5.3 MMOL/L (3.5-5.1); SODIUM 141 MMOL/L (135-145); TOTAL CARBON DIOXIDE 35.9 MMOL/L (24-32); TOTAL PROTEIN 7.1 G/DL (6.4-8.2); eGFR 60 ML/MIN
--- NOTE | 2018-12-30 06:25 | NUR ---
Patient in room [facility] 345. I have received report from Peace Serna RN and had the opportunity to ask questions and assume patient care.
--- NOTE | 2018-12-30 06:36 | NUR ---
Problems reprioritized. Patient report given, questions answered & plan of care reviewed with STEPHANIE Carlson. . Addendum: 12/30/18 at [address] RN Amended: Links added.
[2018-12-30] MEDS ORDERED: non-formulary drug (Ascorbic Acid (Vitamin C) 1 TAB) PO SCH (08:00)
[2018-12-30] MEDS: azelastine Nasal Spray bottle NS SCH ×2 (08:00→20:00)
[2018-12-30] MEDS ORDERED: glipizide 5mg tablet PO SCH (08:00)
[2018-12-30] MEDS: methylPREDNISolone sod succ/PF 40mg inj. IV SCH ×2 (08:24→20:07)
[2018-12-30] MEDS: montelukast 10mg tablet PO SCH (08:25)
[2018-12-30] MEDS: atorvastatin 20mg tablet PO SCH (08:25)
[2018-12-30] MEDS: aspirin 81mg tab.chew PO SCH (08:25)
[2018-12-30] MEDS: metoprolol succinate 25mg (24-HOUR) SR. Tablet PO SCH (08:26)
[2018-12-30] MEDS: ascorbic acid 500mg tablet PO SCH (08:26)
[2018-12-30] MEDS: fenofibrate 145mg tablet PO SCH (08:26)
[2018-12-30] MEDS: lisinopril 5mg tablet PO SCH (08:27)
[2018-12-30] MEDS: heparin, porcine 5000 units/ml vial SQ SCH ×2 (08:27→20:08)
--- NOTE | 2018-12-30 09:00 | NUR ---
Patient is very confused this am. His is at bedside and says that he isn't normally like this. Dr. Bonilla came by and rounded on the patient. After looking at him he said to get an ABG and he may need Bipap. The patient is not in distress but looks a little bit red in the face. Vitals are BP of 138/61, HR of 108, O2 of 90% on 1.5L, and resp. of 26. Addendum: 12/30/18 at 1903 by Robyn Rosario RN Dr. Bonilla also wants his Glipizide on hold for now to ensure that he doesn't drop if he isn't eating enough. He is okay with him not having insulin also.
--- NOTE | 2018-12-30 09:00 | NUR ---
Patient family did not want him to get insulin. His sugar was 224, but she says he doesn't take insulin. He uses Glipizide. Will address with Dr. Bonilla and see what he wants to do.
[2018-12-30 09:40] LABS: ABG BASE EXCESS 4.4 mmol/L (-2.0-3.0); ABG HCO3 31.4 mmol/L (22.0-26.0); ABG OXYGEN SATURATION 85.8 % (95-98); ABG PH (T) 7.351 (7.350-7.450); ABG PO2 (T) 49.2 mmHg (83-108); ALLEN'S TEST Positive; FLOW 1 L/min; FMetHb 0.1 % (0.3-1.12); TOTAL HEMOGLOBIN 12.7 G/dl (14.0-17.9)
--- NOTE | 2018-12-30 09:45 | NUR ---
Patient's ABG's came back but the RT wasn't sure if it was a mixed sample. Dr. Bonilla told her to put him on Bipap anyway and they could re-check them in a few hours. Lacey lancaster RN got a bed for the patient on tele and he will be transferred out shortly.
--- NOTE | 2018-12-30 10:25 | NUR ---
Patient was transferred to Tele. Report was given to STEPHANIE Ernst over on tele.
--- NOTE | 2018-12-30 10:29 | NUR ---
DM consult: Patient with A1c 7.0, previously admitted with A1c 7.2 provided with written and verbal DM education with referral to outpatient DM class and RD contact information mid August of this year. Pt currently documented as confused and with labored breathing only generally able to say 2-3 words at a time per MD notes, DM ed not appropriate at this time. Will monitor need for follow up DM education. Malnutrition consult: Patient's current wt is -4 kg since documented weight of 69 kg from previous visit August 2018, this is non-significant wt loss of 6% in 4 months. Pt currently on a CHO controlled diet documented with 75-100% PO intake meeting nutrient needs. No significant decrease in muscle strength or edema. Pt currently does not meet criteria for malnutrition. Will continue to follow. Addendum: 12/30/18 at [address] Amended: Links added.
--- NOTE | 2018-12-30 10:50 | NUR ---
Patient in room [facility] 3023B. I have received report from STEPHANIE Carlson - Surgical and had the opportunity to ask questions and assume patient care. Pt transferred to PCU unit at 1030 via bed. Respiratory placed pt on BiPAP and mobile tele. Monitoring vital signs. Performed two person skin check and full assessment. Addendum: 12/30/18 at 1054 by Jael Yousif RN Incorrect floor
--- NOTE | 2018-12-30 10:55 | NUR ---
Patient in room PCU 3023B. I have received report from STEPHANIE Carlson - Surgical and had the opportunity to ask questions and assume patient care. Pt transferred to PCU unit at 1030 via bed. Respiratory placed pt on BiPAP and mobile tele. Monitoring vital signs. Performed two person skin check and full assessment.
--- NOTE | 2018-12-30 10:58 | NUR ---
Paged Rm [id number], Latonya. Patient is at 100% and is noted as a CO2 retainer. Please advise. Thank you
--- NOTE | 2018-12-30 11:09 | NUR ---
Spoke with Dr. Bonilla at nurses station. Patient may come off bipap for lunch to eat and have a break and we will continue to monitor him. Patient glipizide is being held in the pharmacy and we are not administering insulin at this time per family.
--- NOTE | 2018-12-30 11:54 | NUR ---
I have reviewed and agree with all medications administered and interventions performed by [facility] Student Gary Garcia Addendum: 12/30/18 at 1154 by Maxine Gonzalez RT Amended: Links added.
[2018-12-30 12:45] LABS: ABG HCO3 37.3 mmol/L (22.0-26.0); ABG OXYGEN SATURATION 83.9 % (95-98); ABG PCO2 (T) 63.8 mmHg (35.0-45.0); ABG PH (T) 7.385 (7.350-7.450); ABG PO2 (T) 44.5 mmHg (83-108); ALLEN'S TEST Positive; FCOHb 1.2 % (0.5-1.5); FMetHb 0.2 % (0.3-1.12); FO2Hb 82.7 % (94-100); MINUTE VOLUME 10 L/min; RESPIRATORY RATE 20 b/min; RESPIRATORY RATE (OBSERVED) 23 b/min; TIDAL VOLUME 449 mL; TOTAL HEMOGLOBIN 12.5 G/dl (14.0-17.9)
--- NOTE | 2018-12-30 13:43 | NUR ---
Rm [id number], Latonya. Pt is having increased confusion, refusing to keep the bipap on, pulling off all monitoring. Please advise. Sujata [phone]
[2018-12-30] MEDS: ipratropium 0.5 MG/2.5ML nebule IH SCH ×2 (14:53→20:30)
[2018-12-30] MEDS ORDERED: haloperidol lactate 5mg/ml inj IM PRN (15:50)
--- NOTE | 2018-12-30 17:54 | NUR ---
Gave report to Amena BROWN in ICU. Patient transferred to 2013.
--- NOTE | 2018-12-30 18:09 | NUR ---
Pt arrived to room 2014 at 1745. Placed pt on BIPAP, monitor, pt confused and not cooperative.
--- NOTE | 2018-12-30 18:37 | NUR ---
Problems reprioritized. Patient report given to Scar, questions answered & plan of care reviewed with .
--- NOTE | 2018-12-30 18:38 | NUR ---
1830..Patient in room CICU 2013. I have received report from Liliane BROWN and had the opportunity to ask questions and assume patient care.
[2018-12-30] MEDS: mirtazapine 15mg tablet PO SCH (20:08)
--- NOTE | 2018-12-30 20:35 | NUR ---
1999..Assessment as noted, pt less restless, visiting at bedside. Bipap in place, tolerating well.
[2018-12-30 20:41] LABS: ABG BASE EXCESS 10.2 mmol/L (-2.0-3.0); ABG HCO3 37.8 mmol/L (22.0-26.0); ABG PCO2 (T) 66.5 mmHg (35.0-45.0); ABG PH (T) 7.373 (7.350-7.450); ABG PO2 (T) 81.3 mmHg (83-108); ALLEN'S TEST Positive; FCOHb 0.8 % (0.5-1.5); FMetHb 0.3 % (0.3-1.12); FO2Hb 94.9 % (94-100); MINUTE VOLUME 13 L/min; PATIENT TEMPERATURE 37.1; RESPIRATORY RATE 20 b/min; RESPIRATORY RATE (OBSERVED) 25 b/min; TOTAL HEMOGLOBIN 12.1 G/dl (14.0-17.9)
--- NOTE | 2018-12-30 22:07 | NUR ---
2200..resting quietly, tolerating bipap well, no other changes noted.
--- NOTE | 2018-12-30 23:08 | NUR ---
2300..incontinent of stool and urine, bath and linen change complete.
[2018-12-31] VITALS (24 sets, daily range): BP systolic 99–165; BP diastolic 40–62
--- NOTE | 2018-12-31 00:17 | NUR ---
0000..Continues to rest quietly, Maulik BEAM CARRIER HAULER PUSHER updated on pt status, regarding bipap orders and no iv fluids. Orders only received for bipap, pt remains saline locked. No other changes noted.
[2018-12-31] MEDS: ipratropium 0.5 MG/2.5ML nebule IH SCH ×4 (03:26→21:23)
--- NOTE | 2018-12-31 04:15 | NUR ---
0400..Has been incontinent of stool and urine several times, no breakdown noted. Continues to rest quietly, no other changes noted.
--- NOTE | 2018-12-31 06:14 | NUR ---
0600..Problems reprioritized. Patient report given, questions answered & plan of care reviewed with Amna BROWN.
[2018-12-31 06:15] LABS: BASOPHILS % (AUTO) 0.1 % (0-1); EOSINOPHILS % (AUTO) 0 % (0-6); HEMATOCRIT 33.3 % (42.0-52.0); LYMPHOCYTES # (AUTO) 1.1 X10'3 (1.1-4.8); LYMPHOCYTES % (AUTO) 16.8 % (21-51); MEAN CORPUSCULAR HEMOGLOBIN 30.7 PG (27.0-31.0); MEAN CORPUSCULAR HGB CONC 33.1 g/dL (33.0-36.5); MEAN CORPUSCULAR VOLUME 92.7 FL (78-98); MEAN PLATELET VOLUME 8.3 FL (7.4-10.4); MONOCYTES # (AUTO) 0.5 X10'3 (0-0.9); MONOCYTES % (AUTO) 7.4 % (2-12); NEUTROPHILS % (AUTO) 75.7 % (42-75); PLATELET COUNT 263 X10'3 (140-440); RED BLOOD COUNT 3.59 X10'6 (4.70-6.10); RED CELL DISTRIBUTION WIDTH 14.5 % (11.5-14.5); WHITE BLOOD COUNT 6.5 X10'3 (4.5-11.0)
[2018-12-31 06:32] LABS: ALANINE AMINOTRANSFERASE 28 U/L (12-78); ALBUMIN/GLOBULIN RATIO 0.9 (1.1-1.5); ALKALINE PHOSPHATASE 40 IU/L (46-116); ANION GAP 5 (8-16); ASPARTATE AMINO TRANSFERASE 22 U/L (10-37); BILIRUBIN,TOTAL 0.3 MG/DL (0.1-1.0); BLOOD UREA NITROGEN 35 MG/DL (7-18); BUN/CREATININE RATIO 27.6 (5.4-32.0); CALCIUM 9.4 MG/DL (8.5-10.1); CHLORIDE 101 MMOL/L (99-107); CREATININE 1.27 MG/DL (0.60-1.10); GLUCOSE 153 MG/DL (70-104); POTASSIUM 4.6 MMOL/L (3.5-5.1); SODIUM 142 MMOL/L (135-145); TOTAL CARBON DIOXIDE 35.8 MMOL/L (24-32); TOTAL PROTEIN 6.4 G/DL (6.4-8.2); eGFR 56 ML/MIN
[2018-12-31] MEDS: methylPREDNISolone sod succ/PF 40mg inj. IV SCH ×2 (07:13→20:54)
[2018-12-31] MEDS: fenofibrate 145mg tablet PO SCH (07:13)
[2018-12-31] MEDS: montelukast 10mg tablet PO SCH (07:15)
[2018-12-31] MEDS: aspirin 81mg tab.chew PO SCH (07:15)
[2018-12-31] MEDS: ascorbic acid 500mg tablet PO SCH (07:15)
[2018-12-31] MEDS: atorvastatin 20mg tablet PO SCH (07:16)
[2018-12-31] MEDS: heparin, porcine 5000 units/ml vial SQ SCH ×2 (07:35→20:54)
[2018-12-31] MEDS: azelastine Nasal Spray bottle NS SCH ×2 (08:00→20:00)
[2018-12-31] MEDS: metoprolol succinate 25mg (24-HOUR) SR. Tablet PO SCH (08:00)
[2018-12-31 11:06] LABS: ABG BASE EXCESS 7.2 mmol/L (-2.0-3.0); ABG HCO3 35.5 mmol/L (22.0-26.0); ABG OXYGEN SATURATION 99.2 % (95-98); ABG PCO2 (T) 69.6 mmHg (35.0-45.0); ABG PH (T) 7.325 (7.350-7.450); ALLEN'S TEST Positive; FCOHb 0.2 % (0.5-1.5); FMetHb 0.2 % (0.3-1.12); FO2Hb 98.8 % (94-100); MINUTE VOLUME 27 L/min; TOTAL HEMOGLOBIN 12.4 G/dl (14.0-17.9)
[2018-12-31] MEDS: CefTRIAXone 2gm/D5W 50ml 50 ML IV SCH (13:03)
--- NOTE | 2018-12-31 17:38 | NUR ---
I have reviewed and agree with all medications administered and interventions performed by [facility] Student, Jeevan Pabon.
--- NOTE | 2018-12-31 18:24 | NUR ---
Pt did not eat or drink anything except 200ml water with his AM meds. Family and the nurse insisted but unsuccessful.
--- NOTE | 2018-12-31 18:39 | NUR ---
Problems reprioritized. Patient report given to Jacinto, questions answered & plan of care reviewed with .
--- NOTE | 2018-12-31 18:40 | NUR ---
Patient in room CICU 2013. I have received report from Amena BROWN and had the opportunity to ask questions and assume patient care.
--- NOTE | 2018-12-31 21:00 | NUR ---
around 2029 i entered pt room to assess BS and give evening medications. pt awoke and opened eyes. bipap was removed and pt was placed on 4L NC. he is tolerating very well. he is alert and oriented. family is at bedside. he is pleasant and cooperative. wishing to eat some dinner, so dinner tray was given to him at this time. continue to monitor.
[2018-12-31] MEDS: albuterol 2.5 MG/3 ML nebule NEB PRN (22:54)
[2018-12-31] MEDS: mirtazapine 15mg tablet PO SCH (23:44)
[2019-01-01] VITALS (18 sets, daily range): BP systolic 128–169; BP diastolic 50–64
--- NOTE | 2019-01-01 02:00 | NUR ---
pt daughter arrived from [place] and visited from around 0100 to 0200. pt was still awake and remains alert and oriented on 3L NC. continue to monitor.
[2019-01-01] MEDS: ipratropium/albuterol 3ml nebule NEB SCH ×4 (02:46→20:13)
[2019-01-01 06:23] LABS: BASOPHILS % (AUTO) 0.1 % (0-1); EOSINOPHILS % (AUTO) 0 % (0-6); HEMATOCRIT 35.3 % (42.0-52.0); HEMOGLOBIN 11.7 g/dl (14.0-17.9); LYMPHOCYTES # (AUTO) 0.4 X10'3 (1.1-4.8); LYMPHOCYTES % (AUTO) 8.1 % (21-51); MEAN CORPUSCULAR HEMOGLOBIN 30.4 PG (27.0-31.0); MEAN CORPUSCULAR VOLUME 92.2 FL (78-98); MEAN PLATELET VOLUME 8.4 FL (7.4-10.4); MONOCYTES # (AUTO) 0.2 X10'3 (0-0.9); MONOCYTES % (AUTO) 4.2 % (2-12); NEUTROPHILS # (AUTO) 4.7 X10'3 (1.8-7.7); NEUTROPHILS % (AUTO) 87.6 % (42-75); PLATELET COUNT 301 X10'3 (140-440); RED BLOOD COUNT 3.83 X10'6 (4.70-6.10); RED CELL DISTRIBUTION WIDTH 14.8 % (11.5-14.5); WHITE BLOOD COUNT 5.4 X10'3 (4.5-11.0)
--- NOTE | 2019-01-01 06:30 | NUR ---
Problems reprioritized. Patient report given, questions answered & plan of care reviewed with Amena BROWN.
[2019-01-01 06:58] LABS: ALANINE AMINOTRANSFERASE 31 U/L (12-78); ALBUMIN 3.1 G/DL (3.4-5.0); ALBUMIN/GLOBULIN RATIO 0.8 (1.1-1.5); ALKALINE PHOSPHATASE 46 IU/L (46-116); ANION GAP 6 (8-16); ASPARTATE AMINO TRANSFERASE 30 U/L (10-37); BILIRUBIN,TOTAL 0.2 MG/DL (0.1-1.0); BLOOD UREA NITROGEN 48 MG/DL (7-18); BUN/CREATININE RATIO 34.5 (5.4-32.0); CALCIUM 9.3 MG/DL (8.5-10.1); CHLORIDE 100 MMOL/L (99-107); CREATININE 1.39 MG/DL (0.60-1.10); GLUCOSE 323 MG/DL (70-104); POTASSIUM 4.1 MMOL/L (3.5-5.1); SODIUM 141 MMOL/L (135-145); TOTAL CARBON DIOXIDE 34.7 MMOL/L (24-32); TOTAL PROTEIN 6.8 G/DL (6.4-8.2); eGFR 51 ML/MIN
[2019-01-01] MEDS: montelukast 10mg tablet PO SCH (07:39)
[2019-01-01] MEDS: atorvastatin 20mg tablet PO SCH (07:40)
[2019-01-01] MEDS: methylPREDNISolone sod succ/PF 40mg inj. IV SCH ×2 (07:40→20:43)
[2019-01-01] MEDS: ascorbic acid 500mg tablet PO SCH (07:40)
[2019-01-01] MEDS: aspirin 81mg tab.chew PO SCH (07:40)
[2019-01-01] MEDS: fenofibrate 145mg tablet PO SCH (07:40)
[2019-01-01] MEDS: heparin, porcine 5000 units/ml vial SQ SCH ×2 (07:41→20:43)
[2019-01-01] MEDS: CefTRIAXone 2gm/D5W 50ml 50 ML IV SCH (07:42)
[2019-01-01] MEDS: azelastine Nasal Spray bottle NS SCH ×2 (07:43→20:44)
[2019-01-01] MEDS: lisinopril 5mg tablet PO SCH (08:25)
[2019-01-01] MEDS: metoprolol succinate 25mg (24-HOUR) SR. Tablet PO SCH (09:11)
[2019-01-01] MEDS: glipizide 5mg tablet PO SCH (09:21)
--- NOTE | 2019-01-01 15:36 | NUR ---
RECEIVED REPORT FROM STEPHANIE TORRES IN CICU
--- NOTE | 2019-01-01 15:57 | NUR ---
PT ARRIVED TO UNIT IN STABLE CONDITION, PT ALERT AND ORIENTED ACCOMPANIED BY FAMILY. ORIENTED TO ROOM, CALL LIGT IN REACH, BED LOW, LOCKED Addendum: 01/01/19 at 1707 by Paola Miles RN AGREE WITH DYNAMITE CARTRIDGE CRIMPER
--- NOTE | 2019-01-01 17:00 | NUR ---
Pt transferred to room 301, in Stable condition. Report given to Paola (STEPHANIE).
--- NOTE | 2019-01-01 18:45 | NUR ---
Problems reprioritized. Patient report given, questions answered & plan of care reviewed with STEPHANIE MCCOY.
--- NOTE | 2019-01-01 19:08 | NUR ---
Patient in room PCU 3017. I have received report from Paola BROWN and had the opportunity to ask questions and assume patient care.
[2019-01-01] MEDS: lactobacillus rhamnosus 10,000 MMU CELLS/CAPSULE PO SCH (20:43)
[2019-01-01] MEDS: mirtazapine 15mg tablet PO SCH (20:43)
--- NOTE | 2019-01-01 23:30 | NUR ---
HR changed from SR w/PACs to Atrial Fib w/RVR 115-120, occas HR incr to 140s f/short bursts. BP: 129/62. Pt alert, oriented. Monitored w/o change.
[2019-01-02] VITALS (14 sets, daily range): BP systolic 97–155; BP diastolic 42–87
[2019-01-02] MEDS ORDERED: metoprolol tartrate 1mg/ml inj IV ONE (00:50)
--- NOTE | 2019-01-02 01:00 | NUR ---
Dental Hygiene Administrative Assistant PSYCHOLOGY TEACHER notified of persistent Atrial Fib w/RVR sustaining in 130s. Lopressor Order obtained and admin. HR decreased to 110-120 X 2.5 HRS.
[2019-01-02] MEDS: ipratropium/albuterol 3ml nebule NEB SCH ×4 (02:28→20:20)
--- NOTE | 2019-01-02 03:30 | NUR ---
Pt. found OOB standing at side of bed, incont of stool and urine. HR increase noted to 140s, sustained X one hour, BP: 112/64. Contract Consultant CALL CIRCUIT WORKER notified, Amiodarone order received and loading dose initiated, mobile at bedside.
[2019-01-02] MEDS ORDERED: amiodarone 150mg/dext, iso-os 100 ML IV ONE (04:30)
[2019-01-02] MEDS ORDERED: amiodarone/D5 360MG/200ML BAG 200 ML IV SCH (04:30)
[2019-01-02 06:05] LABS: BASOPHILS % (AUTO) 0 % (0-1); EOSINOPHILS % (AUTO) 0.1 % (0-6); HEMATOCRIT 35.7 % (42.0-52.0); HEMOGLOBIN 11.8 g/dl (14.0-17.9); LYMPHOCYTES # (AUTO) 0.6 X10'3 (1.1-4.8); LYMPHOCYTES % (AUTO) 7.9 % (21-51); MEAN CORPUSCULAR HEMOGLOBIN 30.3 PG (27.0-31.0); MEAN CORPUSCULAR VOLUME 91.8 FL (78-98); MEAN PLATELET VOLUME 8.3 FL (7.4-10.4); MONOCYTES # (AUTO) 0.3 X10'3 (0-0.9); NEUTROPHILS # (AUTO) 6.9 X10'3 (1.8-7.7); PLATELET COUNT 293 X10'3 (140-440); RED BLOOD COUNT 3.89 X10'6 (4.70-6.10); RED CELL DISTRIBUTION WIDTH 14.8 % (11.5-14.5); WHITE BLOOD COUNT 7.8 X10'3 (4.5-11.0)
[2019-01-02 06:15] LABS: ALANINE AMINOTRANSFERASE 32 U/L (12-78); ALBUMIN 2.7 G/DL (3.4-5.0); ALBUMIN/GLOBULIN RATIO 0.8 (1.1-1.5); ALKALINE PHOSPHATASE 38 IU/L (46-116); ANION GAP 6 (8-16); ASPARTATE AMINO TRANSFERASE 24 U/L (10-37); BILIRUBIN,TOTAL 0.4 MG/DL (0.1-1.0); BLOOD UREA NITROGEN 35 MG/DL (7-18); BUN/CREATININE RATIO 29.4 (5.4-32.0); CALCIUM 8.7 MG/DL (8.5-10.1); CHLORIDE 98 MMOL/L (99-107); CREATININE 1.19 MG/DL (0.60-1.10); GLUCOSE 276 MG/DL (70-104); POTASSIUM 4.1 MMOL/L (3.5-5.1); SODIUM 135 MMOL/L (135-145); TOTAL CARBON DIOXIDE 30.8 MMOL/L (24-32); TOTAL PROTEIN 6.2 G/DL (6.4-8.2); eGFR 61 ML/MIN
--- NOTE | 2019-01-02 06:28 | NUR ---
Patient in room PCU 3017. I have received report from Silas BROWN and had the opportunity to ask questions and assume patient care.
--- NOTE | 2019-01-02 06:44 | NUR ---
Problems reprioritized. Patient report given, questions answered & plan of care reviewed with Inés BROWN.
[2019-01-02] MEDS: atorvastatin 20mg tablet PO SCH (07:38)
[2019-01-02] MEDS: fenofibrate 145mg tablet PO SCH (07:39)
[2019-01-02] MEDS: metoprolol succinate 25mg (24-HOUR) SR. Tablet PO SCH (07:39)
[2019-01-02] MEDS: lactobacillus rhamnosus 10,000 MMU CELLS/CAPSULE PO SCH ×2 (07:39→20:32)
[2019-01-02] MEDS: ascorbic acid 500mg tablet PO SCH (07:40)
[2019-01-02] MEDS: aspirin 81mg tab.chew PO SCH (07:43)
[2019-01-02] MEDS: methylPREDNISolone sod succ/PF 40mg inj. IV SCH (07:43)
[2019-01-02] MEDS: montelukast 10mg tablet PO SCH (07:43)
[2019-01-02] MEDS: lisinopril 5mg tablet PO SCH (07:43)
[2019-01-02] MEDS: heparin, porcine 5000 units/ml vial SQ SCH ×2 (07:43→20:32)
[2019-01-02] MEDS: CefTRIAXone 2gm/D5W 50ml 50 ML IV SCH (07:44)
[2019-01-02] MEDS: azelastine Nasal Spray bottle NS SCH ×2 (07:48→20:32)
[2019-01-02] MEDS ORDERED: digoxin 250mcg/ml 2ml ampule IV ONE (08:25)
--- NOTE | 2019-01-02 10:14 | NUR ---
Informed Dr. Bonilla of patients heart rate. Instructed to stop Amiodarone drip and push 500mcg of digoxin.
[2019-01-02] MEDS: glipizide 5mg tablet PO SCH (10:29)
--- NOTE | 2019-01-02 11:39 | NUR ---
Page sent to Dr. Bonilla: PAGER ID: [phone] MESSAGE: [id number] Eugenio Hanks: GLENNI the patient converted to SR after the Dig push, HR now in the 70's :) Thanks, Inés [phone]
--- NOTE | 2019-01-02 17:21 | NUR ---
[place] documentation: I have reviewed and agree with all interventions, assessments performed and documented by Mila BROWN. [place] Medication Administration: For this medication-pass time frame, all medication were reviewed, dispensed, administered and documented per hospital policy by Mila BROWN.
--- NOTE | 2019-01-02 18:17 | NUR ---
Problems reprioritized. Patient report given, questions answered & plan of care reviewed with Gosia BROWN. Patient stable at time report given.
--- NOTE | 2019-01-02 18:20 | NUR ---
Patient in room PCU 3017. I have received report from STEPHANIE Conte and had the opportunity to ask questions and assume patient care.
[2019-01-02] MEDS: mirtazapine 15mg tablet PO SCH (20:32)
[2019-01-03 03:00] VITALS: BP 136/98
[2019-01-03] MEDS: ipratropium/albuterol 3ml nebule NEB SCH ×2 (03:38→09:07)
[2019-01-03 06:00] VITALS: BP 131/52
[2019-01-03 06:04] LABS: ALANINE AMINOTRANSFERASE 36 U/L (12-78); ALBUMIN 2.9 G/DL (3.4-5.0); ALBUMIN/GLOBULIN RATIO 0.8 (1.1-1.5); ALKALINE PHOSPHATASE 43 IU/L (46-116); ANION GAP 5 (8-16); ASPARTATE AMINO TRANSFERASE 20 U/L (10-37); BILIRUBIN,TOTAL 0.2 MG/DL (0.1-1.0); BLOOD UREA NITROGEN 27 MG/DL (7-18); BUN/CREATININE RATIO 23.1 (5.4-32.0); CHLORIDE 100 MMOL/L (99-107); CREATININE 1.17 MG/DL (0.60-1.10); GLUCOSE 120 MG/DL (70-104); POTASSIUM 3.4 MMOL/L (3.5-5.1); SODIUM 138 MMOL/L (135-145); TOTAL CARBON DIOXIDE 33.4 MMOL/L (24-32); TOTAL PROTEIN 6.4 G/DL (6.4-8.2); eGFR 62 ML/MIN
--- NOTE | 2019-01-03 06:04 | NUR ---
Problems reprioritized. Patient report given, questions answered & plan of care reviewed with STEPHANIE Conte.
[2019-01-03 06:08] LABS: BASOPHILS % (AUTO) 0.1 % (0-1); EOSINOPHILS # (AUTO) 0.1 X10'3 (0-0.9); HEMATOCRIT 36.7 % (42.0-52.0); HEMOGLOBIN 11.9 g/dl (14.0-17.9); LYMPHOCYTES # (AUTO) 1.4 X10'3 (1.1-4.8); LYMPHOCYTES % (AUTO) 21.6 % (21-51); MEAN CORPUSCULAR HEMOGLOBIN 30.1 PG (27.0-31.0); MEAN CORPUSCULAR HGB CONC 32.5 g/dL (33.0-36.5); MEAN CORPUSCULAR VOLUME 92.6 FL (78-98); MEAN PLATELET VOLUME 8.3 FL (7.4-10.4); MONOCYTES # (AUTO) 0.7 X10'3 (0-0.9); MONOCYTES % (AUTO) 11.3 % (2-12); NEUTROPHILS # (AUTO) 4.4 X10'3 (1.8-7.7); PLATELET COUNT 294 X10'3 (140-440); RED BLOOD COUNT 3.96 X10'6 (4.70-6.10); RED CELL DISTRIBUTION WIDTH 14.4 % (11.5-14.5); WHITE BLOOD COUNT 6.6 X10'3 (4.5-11.0)
--- NOTE | 2019-01-03 06:15 | NUR ---
Patient in room PCU 3017. I have received report from Gosia BROWN and had the opportunity to ask questions and assume patient care.
[2019-01-03] MEDS: atorvastatin 20mg tablet PO SCH (07:49)
[2019-01-03] MEDS: CefTRIAXone 2gm/D5W 50ml 50 ML IV SCH (07:49)
[2019-01-03] MEDS: lisinopril 5mg tablet PO SCH (07:50)
[2019-01-03] MEDS: glipizide 5mg tablet PO SCH (07:50)
[2019-01-03] MEDS: montelukast 10mg tablet PO SCH (07:50)
[2019-01-03] MEDS: fenofibrate 145mg tablet PO SCH (07:51)
[2019-01-03] MEDS: aspirin 81mg tab.chew PO SCH (07:51)
[2019-01-03] MEDS: ascorbic acid 500mg tablet PO SCH (07:51)
[2019-01-03] MEDS: lactobacillus rhamnosus 10,000 MMU CELLS/CAPSULE PO SCH (07:51)
[2019-01-03] MEDS: metoprolol succinate 25mg (24-HOUR) SR. Tablet PO SCH (07:51)
[2019-01-03] MEDS: heparin, porcine 5000 units/ml vial SQ SCH (07:52)
[2019-01-03] MEDS: azelastine Nasal Spray bottle NS SCH (07:57)
[2019-01-03] MEDS ORDERED: methylPREDNISolone sod succ/PF 40mg inj. IV SCH (08:00)
[2019-01-03] MEDS ORDERED: LEVO750T21 PO (08:14)
[2019-01-03] MEDS ORDERED: FURO-150 PO (08:16)
[2019-01-03] MEDS ORDERED: potassium Cl 20 mEq SR tablet PO ONE (08:25)
[2019-01-03 11:00] VITALS: BP 120/43
--- NOTE | 2019-01-03 12:03 | NUR ---
Initial: Pt admit w/ COPD exacerbation hx CHF, HTN, COPD, L kidney CA w/ chemo, and T2DM. PO 75-100% meals improving past 2 days following refusal of meals; on remeron. LBM 01/02. AOx4 today; will need DM ed prior to d/c. Will continue to monitor. Rec: 1. continue carb controlled diet 2. routine bowel care 3. wt per rx Addendum: 01/03/19 at [address] Amended: Links added.
--- NOTE | 2019-01-03 14:15 | NUR ---
Patient stable for discharge per MD orders. All discharge instructions reviewed with patient and , all questions answered. New prescriptions called into preferred pharmacy. PIV and bedside monitor discontinued. Belongings collected and sent with patient. Patient left in private vehicle with and daughter. Patient wheeled to lobby by PCT aide.
--- NOTE | 2019-01-03 15:19 | NUR ---
Pt/family in process of d/c. MIRNA provided written DM ed w/ MIRNA contact information provided in case further questions. Addendum: 01/03/19 at [address] Amended: Links added.
== END 2019-01-03 14:15 | disposition home health service (06) | DRG 189 ==
LOC: ER 18:55 → SUR 3N 22:36 → PCU 3S 12-30 10:54 → CICU 2S 12-30 17:40 → PCU 3S 01-01 16:00
PROVIDERS: ADMIT Internal Medicine; ATTEND Internal Medicine
PROC: 5A09457 Assistance with Respiratory Ventilation, 24-96 Consecutive Hours, Continuous Positive Airway Pressure (ICD-10-PCS; principal; 2018-12-30)
DX: J96.02 Acute respiratory failure with hypercapnia (principal); C78.00 Secondary malignant neoplasm of unspecified lung; C64.9 Malignant neoplasm of unspecified kidney, except renal pelvis; J44.1 Chronic obstructive pulmonary disease with (acute) exacerbation; C79.31 Secondary malignant neoplasm of brain; C79.51 Secondary malignant neoplasm of bone; E11.9 Type 2 diabetes mellitus without complications; E78.5 Hyperlipidemia, unspecified; F17.200 Nicotine dependence, unspecified, uncomplicated; I10 Essential (primary) hypertension; I25.10 Atherosclerotic heart disease of native coronary artery without angina pectoris; I48.0 Paroxysmal atrial fibrillation; Z79.82 Long term (current) use of aspirin; Z79.84 Long term (current) use of oral hypoglycemic drugs; Z79.899 Other long term (current) drug therapy; Z95.5 Presence of coronary angioplasty implant and graft
CPT/HCPCS: 36415; 36600; 71045; 80053; 82803; 82948; 83036; 83605; 83735; 83880; 84145; 84484; 85018; 85025; 87040; 87081; 93005; 94640; 94660; 94760; 96365; 96375; 97116; 97162; 97530; 99285; G0378; J0282; J0696; J1160; J1630; J1644; J1815; J2920; J2930; J3490